=== PATIENT | female | born 1975 | race Caucasian/White ===

== ENCOUNTER 2016-10-24 17:14 | Emergency (ER) | payer BC ==
[2016-10-24 17:31] VITALS: BP 148/99
--- NOTE | 2016-10-24 18:27 | UC ---
Respiratory Complaint HPI - HPI Summary HPI Summary: pt c/o worsening cough and wheezing X 3 days. Pt was seen by PCP and is currently taking doxycycline, prednisone and guafenisein cough syrup with no improvement in symptoms - History of Current Complaint Chief Complaint: UCRespiratory Stated Complaint: COUGH,WHEEZING Time Seen by Provider: 10/24/16 17:58 Hx Obtained From: Patient Hx Last Menstrual Period: has an IUD; bleeding last week ?: No Onset/Duration: Gradual Onset, Lasting Days Timing: Constant Severity Initially: Mild Severity Currently: Moderate Character: Cough: Nonproductive Aggravating Factors: Exertion, Deep Breaths, Recumbent Position Alleviating Factors: Nothing Associated Signs And Symptoms: Positive: Wheezing, Hoarseness - Risk Factors Pseudomonas Risk Factors: Chronic Lung Disease - asthma Tuberculosis Risk Factors: Negative - Allergies/Home Medications Allergies/Adverse Reactions: Allergies Allergy/AdvReac Type Severity Reaction Status Date / Time Clarithromycin [From Biaxin] Allergy Intermediate Hives Verified 10/01/16 09:58 PMH/Surg Hx/FS Hx/Imm Hx Previously Healthy: Yes Endocrine History Of: Denies: Diabetes, Thyroid Disease Cardiovascular History Of: Denies: Cardiac Disorders, Hypertension, Pacemaker/ICD Respiratory History Of: Reports: Asthma Denies: COPD GI/ History Of: Denies: Ulcer Psychological History Of: Reports: Anxiety, Depression - Surgical History Surgical History: Yes Surgery Procedure, Year, and Place: surgery for detatched retna; silicone buckle. hernia surg. foot surg. ear tubes. tonsilectomy. pin placement left elbow - Family History Known Family History: Positive: Cardiac Disease - Social History Lives: With Family Alcohol Use: None Substance Use Type: None Smoking Status (MU): Never Smoked Tobacco Have You Smoked in the Last Year: No - Immunization History Most Recent Influenza Vaccination: June 2015 Most Recent Tetanus Shot: unknown Most Recent Pneumonia Vaccination: never Review of Systems Constitutional: Fatigue Skin: Negative Eyes: Negative ENT: Negative Respiratory: Cough Cardiovascular: Negative Gastrointestinal: Negative Genitourinary: Negative Motor: Negative Neurovascular: Negative Musculoskeletal: Negative Neurological: Negative Psychological: Negative All Other Systems Reviewed And Are Negative: Yes Physical Exam Triage Information Reviewed: Yes Appearance: Ill-Appearing Vital Signs: Initial Vital Signs Temp 96.3 F 10/24/16 17:26 Pulse 95 10/24/16 17:26 Resp 20 10/24/16 17:26 BP 148/99 10/24/16 17:26 Pulse Ox 97 10/24/16 17:26 Vital Signs Reviewed: Yes ENT Exam: Other ENT: Positive: Nasal congestion Neck exam: Normal Respiratory: Positive: Wheezing Cardiovascular Exam: Normal Musculoskeletal Exam: Normal Neurological Exam: Normal Psychological Exam: Normal Skin Exam: Normal UC Diagnostic Evaluation - Laboratory O2 Sat by Pulse Oximetry: 97 Respiratory Course/Dx - Course Course Of Treatment: chest xray. The lungs are clear. No pleural effusion is present. IMPRESSION: NO EVIDENCE FOR ACTIVE CARDIOPULMONARY DISEASE. - Differential Dx/Diagnosis Differential Diagnosis/HQI/PQRI: Asthma, Bronchitis, Other - pneumonia Provider Diagnoses: Bronchitis Discharge - Discharge Plan Condition: Stable Disposition: HOME Prescriptions: Amoxicillin/Clavulanate TAB* [Augmentin TAB 500 mg*] 500 mg PO BID #10 tab Benzonatate CAP* [Tessalon CAP*] 100 mg PO TID PRN #15 cap PRN Reason: Cough Patient Education Materials: Acute Bronchitis (ED), Wheezing (ED) Referrals: Memo Victoria MD [Primary Care Provider] - Additional Instructions: Please discontinue taking the Doxycycline that was prescribed to you.
--- NOTE | 2016-10-24 18:43 | RAD ---
INDICATION: Cough and shortness of breath. COMPARISON: Comparison is made with a prior study from January 07, 2016. TECHNIQUE: Dual-energy PA and lateral views of the chest were obtained. FINDINGS: The heart is within normal limits in size. Mediastinal and hilar contours appear within normal limits. The lungs are clear. No pleural effusion is present. IMPRESSION: NO EVIDENCE FOR ACTIVE CARDIOPULMONARY DISEASE.
[2016-10-24] MEDS ORDERED: Benzonatate CAP* 100 MG PO ONE (18:47)
[2016-10-24] MEDS ORDERED: Amoxicillin/Clavulanate TAB* 500 MG PO ONE (18:51)
== END 2016-10-24 18:55 | disposition home or self-care (01) ==
LOC: UCEAST 17:14
DX: J40 Bronchitis, not specified as acute or chronic (principal); Z88.1 Allergy status to other antibiotic agents
CPT/HCPCS: 71020; 99212; A9270-GY; G0463

== ENCOUNTER 2017-04-27 16:55 | Emergency (ER) | payer BC ==
[2017-04-27 17:23] VITALS: BP 128/71
--- NOTE | 2017-04-27 18:12 | UC ---
Respiratory Complaint HPI - HPI Summary HPI Summary: 42 y/o female w/ PMHX UC, Asthma, PCOS presents to the urgent care c/o persistent cough for the past 3 weeks. Pt reports her cough is productive w/ green phlegm, nasal congestion and mild SOB and Wheezing. she has been taking some organic medicine and lately Mucinex and using her Albuterol inhaler. Pt states her cough is disturbing everyone at work. Pt denies fever, chest pain, N/ V/D, urinary symptoms. Pt has not other complains. - History of Current Complaint Chief Complaint: UCRespiratory Stated Complaint: COUGH,CONGESTION Time Seen by Provider: 04/27/17 18:08 Hx Obtained From: Patient Hx Last Menstrual Period: IUD ?: No Onset/Duration: Gradual Onset, Lasting Weeks, Still Present Timing: Constant Severity Initially: Mild Severity Currently: Moderate Character: Cough: Productive - green phlegm Alleviating Factors: Bronchodilator - Allergies/Home Medications Allergies/Adverse Reactions: Allergies Allergy/AdvReac Type Severity Reaction Status Date / Time Clarithromycin [From Biaxin] Allergy Intermediate Hives Verified 04/27/17 17:23 Home Medications: Home Medications Adalimumab [Humira] 40 mg SC 04/27/17 [History] Ascorbic Acid TAB* [Vitamin C TAB*] 500 mg PO BID 04/27/17 [History Confirmed 04/27/17] Cholecalciferol TAB* [Vitamin D TAB*] 1,000 unit PO DAILY 04/27/17 [History Confirmed 04/27/17] Essential Oils* 04/27/17 [History] Zinc [Zinc Methionate] 50 mg PO DAILY 04/27/17 [History Confirmed 04/27/17] guaiFENesin ER TAB [Mucinex*] 2 tab PO PRN 04/27/17 [History] PMH/Surg Hx/FS Hx/Imm Hx Previously Healthy: Yes Other Endocrine History: PCOS Respiratory History: Asthma Other GI/ History: Ulcerative colitis - Surgical History Surgical History: Yes Surgery Procedure, Year, and Place: surgery for detatched retna; silicone buckle. hernia surg. foot surg. ear tubes. tonsilectomy. pin placement left elbow - Family History Known Family History: Positive: Cardiac Disease, Hypertension Family History: Dyslipidemia - Social History Occupation: Employed Full-time Lives: With Family Alcohol Use: None Substance Use Type: None Smoking Status (MU): Never Smoked Tobacco Have You Smoked in the Last Year: No - Immunization History Most Recent Influenza Vaccination: June 2015 Most Recent Tetanus Shot: unknown Most Recent Pneumonia Vaccination: never Review of Systems Constitutional: Negative Skin: Negative Eyes: Negative ENT: Negative Respiratory: Shortness Of Breath - productive with green phlegm, Cough Gastrointestinal: Negative Genitourinary: Negative Motor: Negative Neurovascular: Negative Musculoskeletal: Negative Neurological: Negative Psychological: Negative All Other Systems Reviewed And Are Negative: Yes Physical Exam Triage Information Reviewed: Yes Appearance: Well-Appearing, No Pain Distress, Well-Nourished, Obese Vital Signs: Initial Vital Signs Temp 97.2 F 04/27/17 17:20 Pulse 86 04/27/17 17:20 Resp 16 04/27/17 17:20 BP 128/71 04/27/17 17:20 Pulse Ox 100 04/27/17 17:20 Vital Signs Reviewed: Yes Eye Exam: Normal Eyes: Positive: Conjunctiva Clear - PERRLA, EOMI, ENT: Positive: Normal ENT inspection, Hearing grossly normal, Pharynx normal, TMs normal. Negative: Tonsillar swelling, Tonsillar exudate Dental Exam: Normal Neck exam: Normal Neck: Positive: Supple, Nontender, No Lymphadenopathy Respiratory Exam: Normal Respiratory: Positive: Chest non-tender, Normal breath sounds, Crackles - posterior left upper lung field w/ mild crackles Cardiovascular Exam: Normal Cardiovascular: Positive: RRR, No Murmur, Pulses Normal Abdominal Exam: Normal Abdomen Description: Positive: Nontender, No Organomegaly, Soft. Negative: CVA Tenderness (R), CVA Tenderness (L) Bowel Sounds: Positive: Present Musculoskeletal Exam: Normal Musculoskeletal: Positive: Strength Intact, ROM Intact, No Edema Neurological Exam: Normal Psychological Exam: Normal Skin Exam: Normal UC Diagnostic Evaluation - Laboratory O2 Sat by Pulse Oximetry: 100 Respiratory Course/Dx - Course Course Of Treatment: 42 y/o female w/ PMHX UC, Asthma, PCOS presents to the urgent care c/o persistent cough for the past 3 weeks. HX obtained. Pt Rx Z- abbey PO and Benzoate tab Po to alleviate her persistant cough. Advised to increase flud intake, rest and eat well. If symptoms do not improve to return to the urgent care or f/u with her PCP. - Differential Dx/Diagnosis Differential Diagnosis/HQI/PQRI: Asthma, Bronchitis, Laryngitis, Lower Resp Infection, Sinusitis, Other - pharyngitis Provider Diagnoses: 1- Bronchitis Discharge - Discharge Plan Condition: Stable Disposition: HOME Prescriptions: Azithromyxin ABBEY (NF) [Z-Abbey (Zithromax) 250 mg tabs #6] 2 tab PO .TODAY, THEN 1 DAILY #6 tab Benzonatate CAP* [Tessalon 100 MG CAP*] 100 mg PO TID PRN #21 cap PRN Reason: Cough Patient Education Materials: Acute Bronchitis (ED) Forms: *Work Release Referrals: Memo Victoria MD [Primary Care Provider] - If Needed Additional Instructions: Please take full course of antibiotic as directed to avoid recurrence or resistance. Continue taking your albuterol inhaler to alleviate symptoms. If symptoms do not improve or worsen please return to the urgent care or f/u with your PCP for further evaluation and treatment.
== END 2017-04-27 18:44 | disposition home or self-care (01) ==
LOC: UCEAST 16:55
DX: J40 Bronchitis, not specified as acute or chronic (principal); E28.2 Polycystic ovarian syndrome; E66.9 Obesity, unspecified; Z88.1 Allergy status to other antibiotic agents
CPT/HCPCS: 99212; G0463

== ENCOUNTER 2018-08-12 17:30 | Emergency (ER) | payer BC ==
--- OUTSIDE RECORDS SUMMARY | 2018-08-12 17:36 | XMS REPORT ---
:1975 External Reference #:[id number] Author Organization [employer] Address [address] [place] [address] Phone [phone] Care Team Providers Name Role Phone Adán Cano MD Care Team Information [employer] Unavailable Memo Victoria MD Primary Care Physician Unavailable Payers Type Date Identification Numbers Payment Provider Subscriber Commercial Policy Number: [id number] [place] Eitan Page PayID: [id number] [address] [place] [address] Problems Date Description Provider Status Onset: 08/15/2015 Status migrainosus Anthony Moore MD Active Onset: 12/29/2015 Migraine Anthony Moore MD Active Onset: 05/27/2016 Migraine without aura, not refractory Anthony Moore MD Active Family History Date Family Member(s) Problem(s) Comments General Diabetes General Cancer General Heart Disease General Rheumatoid Arthritis General Colitis Father Diabetes Father Hypercholesterolemia Mother Diabetes First Sister Cervical Cancer Social History Type Date Description Comments Marital Status Lives With Lives With Children x3 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 Cigarette Use Never Smoked Cigarettes ETOH Use Rarely consumes alcohol Smoking Patient has never smoked Recreational Drug Use Denies Drug Use Daily Caffeine Consumes on average 16oz of soda per day Daily Caffeine Consumes on average 4 cups of regular coffee per day Exercise Type/Frequency Exercises rarely Allergies, Adverse Reactions, Alerts Date Description Reaction Status Severity Comments 07/16/2014 Biaxin Urticaria active Moderate to Severe Medications Medication Date Status Form Strength Qnty SIG Indications Ordering Provider Methotrexate 07/28 Active Solution 50mg/2ML 10ml inject 0.9 K51.90 Jordan Sodium /2018 milliliter Quan, s under M.D. the skin once weekly BD 1ML 07/28 Active Misc 26G X 90uni for use Jordan Syringe/Needle/Sl 02/07" 1 ML ts weekly Quan, ip Tip/Subq/26G X with sc M.D. 02/07" methotrexa te Alprazolam 07/26 Active Tablets 0.25mg 14tab take one K51.90 s tablet/cap Quan, arcelia by M.D. mouth at bedtime. as needed for anxiety mdd 1 mdd 1 MDD 1 MDD 1 Folic Acid 02/01 Active Tablets 1mg 90tab take one R70.0 s capsule/ta Quan, blet daily M.D. by mouth Humira Pen 11/08 Active PNKT 40mg/0.8M 2unit inject 40 K51.90 L s mg Quan, subcutaneo M.D. usly every other week a Tizanidine HCL 11/02 Active Capsules 2mg 30cap take 1 to K51.90 s 2 capsules Quan, by mouth M.D. if needed at night for spasms Butalbital/Acetam 01/04 Active Tablets 50-325-40 10tab 1 by mouth Anthony inoanita/Caffeine /2016 mg s as needed Oscar migraine may repeat in 2 hours MDD 2 Topiramate 12/28 Active Tablets 25mg 150ta 2 by mouth Anthony /2016 bs every genesis Moore MD and 2 by mouth every night Albuterol Sulfate Active prn Singulair Active 10mg 1 po qd Xyzal Active Tab 1 po qd Unknown Spironolactone Active Tablets 25mg 30tab 2 po qam Unknown s and 3 q evening Duloxetine HCL Active Caps DR 60mg 1 po daily Niziol, / Part (total Memo, dose 90 MD mg) Dulera Active Aerosol 100-5mcg/ 2 puff Unknown Act twice a day Spiriva Active Capsules 18mcg 1 unit Unknown Handihaler / inhalation daily Duloxetine HCL Active Caps DR 30mg 1 by mouth Unknown Part every day (total dose 90 mg) Vit C Active 1000mg qd Zinc Active Tablets 50mg qd Vitamin D Active Capsules [id number] 14cap take one Jordan (Ergocalciferol) s capsule by Quan, mouth once M.D. weekly Biotin Active Capsules 10,000 qd Vitamin B-12 Active Tablets Sub 500mcg 1 by mouth Unknown every day Multivitamin Active Chewtabs 1 tabs Unknown Children once daily Caltrate 600+D Active Chewtabs 600-800mg take one Unknown Plus Minerals -Unit capsule/ta blet by mouth twice daily Essential Oils Active as needed Omeprazole Active Capsules DR 20mg 1 by mouth every day Tramadol HCL Active Tablets 50mg 60tab 1 or 2 as s needed for Quan, pain MDD 2 M.D. MDD 2 Cefaly Dual 03/08 Hx Device 1unit Dual Anthony Device /2017 s Device Oscar, - with 1 MD 05/20 package of electrodes . dxG43.009 Xanax 05/03 Hx Tablets 0.5mg 14tab Take one K51.90 s tablet/cap Marcio Glass by Chloé 07/26 mouth at bedtime. as needed for anxiety Methotrexate 02/01 Hx Tablets 2.5mg take 6 capsules/t Marcio Glassts by Chloé 02/01 mouth once weekly Methotrexate 02/01 Hx Tablets 2.5mg take 6 K51.90 capsules/t Marcio Glassts by Chloé 05/03 mouth once weekly Methotrexate 02/01 Hx Tablets 2.5mg 90tab take9 K51.90 s capsules/t Marcio Glassts by Chloé 07/28 mouth weekly on Tuesday evenings Humira Pen-Crohns 11/08 Hx PNKT 40mg/0.8M 6unit 160mg sq K51.90 Jordan Diseasestarter /2016 L s inj on Quan, - day 1; 80 M.D. 02/01 mg sq inj /2016 on day 15 then 40 mg sq inj on day 29 and q 2 weeks thereafter Humira Pen 11/05 Hx PNKT 40mg/0.8M 2unit 160 mg L s initially Quan, - on Day 1, M.D. 11/08 followed by 80 mg two weeks later, followed 2 weeks later by 40mg SQ every 2 weeks D3 Adult 11/02 Hx Chewtabs 1000Unit 90uni take one K51.90 ts capsule/ta Quan, - blet daily M.D. 10/25 by mouth Butalbital/Acetam 12/28 Hx Tablets 50-500-40 10tab 1 by mouth Anthony inophen/Caffeine mg s as needed Marcio Moore migraine 01/04 in 2 hours Topamax 09/18 Hx Tablets 25mg 270ta 1 po qam bs and 2 po Marcio Moore qpm 12/28 Amitriptyline HCL 08/06 Hx Tablets 10mg 90tab 2 po q hsx Anthony s 1week then Marcio Moroe 1 po qhs 12/01 x1we then stop Methylprednisolon 08/20 Hx Tablets 32mg 6tabs 1 tab by Siddhartha jus Nixon, - every day M.D. 09/09 for days, then start dose pack taper Methylprednisolon 08/20 Hx Tablets 4mg 1pack take as Siddhartha hill () catalino Nixon - M.D. 09/09 Gabapentin 08/20 Hx Capsules 300mg 90cap 1 po qhs, Siddhartha s farhan Nixon, - increase M.D. 10/21 to 1 tabs /2014 po tid after 5 days if needed, then 2 tabs po tid after 10 days if needed for pain Dulera 00 Hx 2 puffs Unknown / bid - 10/21 Omeprazole 00/00 Hx Unknown / - 09/09 Xanax 00/00 Hx Unknown /0000 - 09/09 Ultram ER 00/00 Hx prn / - 10/21 Remicade 00 Hx 800mg q 6 weeks Unknown / IV - infusion 02/01 Celexa 00 Hx 20mg po qd Unknown /0000 - 08/03 Fluticasone Hx Suspension 50mcg/Act 16uni 2 sprays Unknown Propionate /0000 ts each - nostril 10/21 daily needed Topiramate Hx Tablets 100mg 270ta 1 by mouth Unknown /0000 bs qd - 08/03 Methotrexate Hx Tab 2.5mg 90tab 8 by Unknown /0000 s mouth once - every 02/01 night Folic Acid 00 Hx 1 cap po Unknown /0000 daily - 02/01 Butalbital/Acetam Hx Capsules 50-325-40 Take 1 To Unknown inophen/Caffeine /0000 mg 2 Capsules - Every 4 12/28 Hours prn Duloxetine HCL Hx Caps DR 30mg 1 by mouth Unknown /0000 Part every day - in 10/15 to 60mg cap Phendimetrazine Hx Tablets 35mg 2 tabs bid Unknown Tartrate /0000 prn wt - loss 03/03 Womans One A Day Hx Unknown Multi Vit /0000 - 02/01 Lidocaine Hx Patches 5% apply Unknown / patch up - to 12 / hours a day. Prednisone 00 Hx Tablets 10mg Take 4 Unknown /0000 Tablets By - Mouth On 05/03 Days 1&2, 3 On Days 3&4, 2 On Days 5&6, 1 O Amoxicillin/Clavu 00 Hx Tablets 500-125mg take 1 Unknown lanate Potassium /0000 tablet by - mouth 02/01 twice a day Benzonatate Hx Capsules 100mg Unknown /0000 - 05/03 Augmentin 00/ Hx Suspension 250-62.5m 10 Unknown /0000 Rec g/5ML milliliter - s three 05/03 times day for 10 days Cefdinir Hx Capsules 300mg Unknown /0000 - 01/02 Medications Administered in Office Medication Date Status Form Strength Qnty SIG Indications Ordering Provider Celestone 3 mg Administered Injection Memo and 3mg Sammi Pedersen MD Immunizations CPT Code Status Date Vaccine Reaction Lot # [id number] Given 07/28/2018 Pneumonia Vaccine [id number] Given 01/27/2018 Tetanus And Diptheria (Td) no immediate reaction [id number] For Adult Use Preservative noted Free [id number] Given 02/01/2017 Pneumococcal Conjugate No reaction noted [id number] Vaccine 13 Valent For Intramuscular Use Vital Signs Date Vital Result Comment 07/28/2018 Height 68 inches 5'8" Weight 261.12 lb Heart Rate 90 /min BP Systolic Sitting 138 mmHg BP Diastolic Sitting 80 mmHg Pain Level 4 O2 % BldC Oximetry 97 % BMI (Body Mass Index) 39.7 kg/m2 07/11/2018 Height 68 inches 5'8" Weight 265.00 lb Heart Rate 90 /min BP Systolic 140 mmHg BP Diastolic 80 mmHg O2 % BldC Oximetry 97 % BMI (Body Mass Index) 40.3 kg/m2 06/20/2018 Height 68 inches 5'8" Weight 258.00 lb Respiratory Rate 16 /min BMI (Body Mass Index) 39.2 kg/m2 05/21/2018 Height 68 inches 5'8" Weight 258.38 lb Heart Rate 72 /min BP Systolic Sitting 122 mmHg Rue large cuff BP Diastolic Sitting 80 mmHg Rue large cuff Respiratory Rate 16 /min O2 % BldC Oximetry 97 % BMI (Body Mass Index) 39.3 kg/m2 04/28/2018 Height 68 inches 5'8" Weight 263.00 lb Heart Rate 89 /min BP Systolic Sitting 126 mmHg BP Diastolic Sitting 82 mmHg Pain Level 6 O2 % BldC Oximetry 98 % BMI (Body Mass Index) 40.0 kg/m2 03/24/2018 Height 68 inches 5'8" Weight 256.00 lb Heart Rate 88 /min BP Systolic Sitting 124 mmHg BP Diastolic Sitting 88 mmHg Respiratory Rate 14 /min O2 % BldC Oximetry 98 % BMI (Body Mass Index) 38.9 kg/m2 03/08/2018 Height 68 inches 5'8" Weight 257.50 lb Heart Rate 78 /min BP Systolic Sitting 126 mmHg BP Diastolic Sitting 80 mmHg BMI (Body Mass Index) 39.1 kg/m2 03/04/2018 Height 68 inches 5'8" Weight 257.00 lb Heart Rate 84 /min BP Systolic Sitting 124 mmHg Lue lg cuff BP Diastolic Sitting 80 mmHg Lue lg cuff Respiratory Rate 16 /min BMI (Body Mass Index) 39.1 kg/m2 Neck Circumference in inches 14.5 Ejection Fraction 98% on Ra 01/27/2018 Height 68 inches 5'8" Weight 259.50 lb Heart Rate 86 /min BP Systolic Sitting 118 mmHg BP Diastolic Sitting 80 mmHg Pain Level 5 O2 % BldC Oximetry 98 % BMI (Body Mass Index) 39.5 kg/m2 10/25/2017 Height 68 inches 5'8" Weight 264.00 lb Heart Rate 84 /min BP Systolic Sitting 110 mmHg BP Diastolic Sitting 60 mmHg Respiratory Rate 14 /min Pain Level 2 BMI (Body Mass Index) 40.1 kg/m2 07/26/2017 Height 68 inches 5'8" Weight 265.50 lb Heart Rate 203 /min BP Systolic 133 mmHg BP Diastolic 87 mmHg Body Temperature 98.3 F O2 % BldC Oximetry 97 % BMI (Body Mass Index) 40.4 kg/m2 05/17/2017 Height 68 inches 5'8" Weight 263.00 lb Heart Rate 76 /min BP Systolic Sitting 128 mmHg BP Diastolic Sitting 80 mmHg BMI (Body Mass Index) 40.0 kg/m2 05/03/2017 Height 68 inches 5'8" Weight 261.00 lb Heart Rate 87 /min BP Systolic Sitting 131 mmHg BP Diastolic Sitting 78 mmHg Body Temperature 97.5 F Pain Level 0 BMI (Body Mass Index) 39.7 kg/m2 02/01/2017 Height 68 inches 5'8" Heart Rate 82 /min BP Systolic Sitting 133 mmHg BP Diastolic Sitting 88 mmHg Respiratory Rate 16 /min Pain Level 2 11/02/2016 Height 68 inches 5'8" Weight 266.00 lb Heart Rate 88 /min BP Systolic Sitting 138 mmHg BP Diastolic Sitting 82 mmHg Body Temperature 97.1 F Pain Level 2 BMI (Body Mass Index) 40.4 kg/m2 10/22/2016 Height 68 inches 5'8" Weight 268.00 lb Heart Rate 64 /min BP Systolic Sitting 118 mmHg BP Diastolic Sitting 78 mmHg Respiratory Rate 16 /min Pain Level 3 BMI (Body Mass Index) 40.7 kg/m2 10/15/2016 Height 68 inches 5'8" Weight 268.00 lb Heart Rate 84 /min BP Systolic Sitting 120 mmHg BP Diastolic Sitting 74 mmHg Body Temperature 97.8 F Pain Level 3 BMI (Body Mass Index) 40.7 kg/m2 05/27/2016 Height 68 inches 5'8" Weight 272.12 lb Heart Rate 85 /min BP Systolic Sitting 128 mmHg BP Diastolic Sitting 80 mmHg Respiratory Rate 18 /min O2 % BldC Oximetry 98 % BMI (Body Mass Index) 41.4 kg/m2 12/29/2015 Height 68 inches 5'8" Weight 268.00 lb Heart Rate 84 /min BP Systolic 126 mmHg BP Diastolic 78 mmHg Respiratory Rate 16 /min BMI (Body Mass Index) 40.7 kg/m2 08/15/2015 Height 68 inches 5'8" Weight 270.00 lb Heart Rate 76 /min BP Systolic Sitting 142 mmHg BP Diastolic Sitting 86 mmHg Respiratory Rate 16 /min BMI (Body Mass Index) 41.0 kg/m2 10/22/2014 Height 69.5 inches 5'9.50" Weight 262.00 lb Pain Level 1 BMI (Body Mass Index) 38.1 kg/m2 09/10/2014 Height 69.5 inches 5'9.50" Weight 262.00 lb Heart Rate 72 /min BMI (Body Mass Index) 38.1 kg/m2 09/09/2014 Height 69.5 inches 5'9.50" Weight 262.00 lb Heart Rate 78 /min BP Systolic Sitting 118 mmHg BP Diastolic Sitting 78 mmHg Pain Level 3 BMI (Body Mass Index) 38.1 kg/m2 08/20/2014 Height 69.5 inches Weight 230.00 lb Heart Rate 79 /min BP Systolic 117 mmHg BP Diastolic 89 mmHg BMI (Body Mass Index) 33.5 kg/m2 07/16/2014 Height 69.5 inches 5'9.50" Weight 230.00 lb Heart Rate 85 /min BP Systolic 121 mmHg BP Diastolic 91 mmHg BMI (Body Mass Index) 33.5 kg/m2 Results Test Date Test Result H/L Range Note Laboratory test finding 04/28/2018 Erythrocyte Sed Rate 38 mm/Hr High 0- 14 C Reactive Protein 9.98 mg/L High <8.01 CBC Auto Diff 04/28/2018 White Blood Count 9.3 10^3/uL 3.5-10.8 Red Blood Count 4.49 10^6/uL 4.00-5.40 Hemoglobin 13.5 g/dL 12.0-16.0 Hematocrit 40 % 35-47 Mean Corpuscular Volume 88 fL 80-97 Mean Corpuscular Hemoglobin 30 pg 27-31 Mean Corpuscular HGB Conc 34 g/dL 31-36 Red Cell Distribution Width 15 % 10.5-15 Platelet Count 352 10^3/uL 150-450 Mean Platelet Volume 7.4 um3 7.4-10.4 Abs Neutrophils 4.2 10^3/uL 1.5-7.7 Abs Lymphocytes 4.2 10^3/uL 1.0-4.8 Abs Monocytes 0.7 10^3/uL 0-0.8 Abs Eosinophils 0.2 10^3/uL 0-0.6 Abs Basophils 0 10^3/uL 0-0.2 Abs Nucleated RBC 0 10^3/uL Granulocyte % 45.4 % 38-83 Lymphocyte % 44.9 % 25-47 Monocyte % 7.4 % High 0-7 Eosinophil % 1.8 % 0-6 Basophil % 0.5 % 0-2 Nucleated Red Blood Cells % 0.2 Comp Metabolic Panel 04/28/2018 Sodium 138 mmol/L 135-145 Potassium 4.1 mmol/L 3.5-5.0 Chloride 102 mmol/L 101-111 Co2 Carbon Dioxide 27 mmol/L 22-32 Anion Gap 9 mmol/L 2-11 Glucose 110 mg/dL High 70-100 Blood Urea Nitrogen 14 mg/dL 6-24 Creatinine 0.74 mg/dL 0.51-0.95 BUN/Creatinine Ratio 18.9 8-20 Calcium 9.8 mg/dL 8.6-10.3 Total Protein 7.3 g/dL 6.4-8.9 Albumin 4.4 g/dL 3.2-5.2 Globulin 2.9 g/dL 2-4 Albumin/Globulin Ratio 1.5 1-3 Total Bilirubin 0.20 mg/dL 0.2-1.0 Alkaline Phosphatase 89 U/L 34-104 Alt 22 U/L 7-52 Ast 20 U/L 13-39 Egfr Non- 85.3 >60 Egfr 103.2 >60 1 Laboratory test finding 03/04/2018 Nuclear AB ([place]) By Ifa Igg <1:80 ( Negative) 2 Anca Panel For 03/04/2018 Myeloperoxidase AB < 0.2 U 3 Vasculitis Proteinase 3 AB < 0.2 U 4 Laboratory test finding 03/04/2018 CRP High Sensitivity 9.02 mg/L 5 Immunoglobulin E (Ige) 26.9 kU/L <=214 6 CBC Auto Diff 03/04/2018 White Blood Count 7.9 10^3/uL 3.5-10.8 Red Blood Count 4.55 10^6/uL 4.0-5.4 Hemoglobin 13.4 g/dL 12.0-16.0 Hematocrit 39 % 35-47 Mean Corpuscular Volume 87 fL 80-97 Mean Corpuscular Hemoglobin 29 pg 27-31 Mean Corpuscular HGB Conc 34 g/dL 31-36 Red Cell Distribution Width 15 % 10.5-15 Platelet Count 315 10^3/uL 150-450 Mean Platelet Volume 7.7 um3 7.4-10.4 Abs Neutrophils 4.1 10^3/uL 1.5-7.7 Abs Lymphocytes 3.2 10^3/uL 1.0-4.8 Abs Monocytes 0.5 10^3/uL 0-0.8 Abs Eosinophils 0.1 10^3/uL 0-0.6 Abs Basophils 0.1 10^3/uL 0-0.2 Abs Nucleated RBC 0 10^3/uL Granulocyte % 51.7 % 38-83 Lymphocyte % 40.4 % 25-47 Monocyte % 6.3 % 0-7 Eosinophil % 0.9 % 0-6 Basophil % 0.7 % 0-2 Nucleated Red Blood Cells % 0.1 Laboratory test finding 01/27/2018 Erythrocyte Sed Rate 35 mm/Hr High 0- 14 C Reactive Protein 7.91 mg/L High < 5.00 7 CBC Auto Diff 01/27/2018 White Blood Count 9.5 10^3/uL 3.5-10.8 Red Blood Count 4.66 10^6/uL 4.0-5.4 Hemoglobin 13.8 g/dL 12.0-16.0 Hematocrit 40 % 35-47 Mean Corpuscular Volume 86 fL 80-97 Mean Corpuscular Hemoglobin 30 pg 27-31 Mean Corpuscular HGB Conc 34 g/dL 31-36 Red Cell Distribution Width 15 % 10.5-15 Platelet Count 348 10^3/uL 150-450 Mean Platelet Volume 7.2 um3 Low 7.4-10.4 Abs Neutrophils 4.5 10^3/uL 1.5-7.7 Abs Lymphocytes 4.1 10^3/uL 1.0-4.8 Abs Monocytes 0.7 10^3/uL 0-0.8 Abs Eosinophils 0.1 10^3/uL 0-0.6 Abs Basophils 0.1 10^3/uL 0-0.2 Abs Nucleated RBC 0 10^3/uL Granulocyte % 47.4 % 38-83 Lymphocyte % 43.5 % 25-47 Monocyte % 7.6 % High 0-7 Eosinophil % 0.9 % 0-6 Basophil % 0.6 % 0-2 Nucleated Red Blood Cells % 0.1 Comp Metabolic Panel 01/27/2018 Sodium 137 mmol/L Low 139-145 Potassium 4.1 mmol/L 3.5-5.0 Chloride 104 mmol/L 101-111 Co2 Carbon Dioxide 21 mmol/L Low 22-32 Anion Gap 12 mmol/L High 2-11 Glucose 93 mg/dL 70-100 Blood Urea Nitrogen 22 mg/dL 6-24 Creatinine 0.78 mg/dL 0.51-0.95 BUN/Creatinine Ratio 28.2 High 8-20 Calcium 9.7 mg/dL 8.6-10.3 Total Protein 7.7 g/dL 6.4-8.9 Albumin 4.5 g/dL 3.2-5.2 Globulin 3.2 g/dL 2-4 Albumin/Globulin Ratio 1.4 1-3 Total Bilirubin 0.30 mg/dL 0.2-1.0 Alkaline Phosphatase 83 U/L 34-104 Alt 17 U/L 7-52 Ast 15 U/L 13-39 Egfr Non- 80.2 >60 Egfr 103.2 >60 8 Laboratory test finding 10/25/2017 C Reactive Protein 11.75 mg/L High < 5.00 9 Erythrocyte Sed Rate 28 mm/Hr High 0-14 10 CBC Auto Diff 10/25/2017 White Blood Count 12.3 10^3/uL High 3.5-10.8 Red Blood Count 4.91 10^6/uL 4.0-5.4 Hemoglobin 14.5 g/dL 12.0-16.0 Hematocrit 44 % 35-47 Mean Corpuscular Volume 89 fL 80-97 Mean Corpuscular Hemoglobin 29 pg 27-31 Mean Corpuscular HGB Conc 33 g/dL 31-36 Red Cell Distribution Width 15 % 10.5-15 Platelet Count 399 10^3/uL 150-450 Mean Platelet Volume 7 um3 Low 7.4-10.4 Abs Neutrophils 6.8 10^3/uL 1.5-7.7 Abs Lymphocytes 4.4 10^3/uL 1.0-4.8 Abs Monocytes 0.9 10^3/uL High 0-0.8 Abs Eosinophils 0.2 10^3/uL 0-0.6 Abs Basophils 0.1 10^3/uL 0-0.2 Abs Nucleated RBC 0 10^3/uL Granulocyte % 55.5 % 38-83 Lymphocyte % 35.7 % 25-47 Monocyte % 7.0 % 1-9 Eosinophil % 1.3 % 0-6 Basophil % 0.5 % 0-2 Nucleated Red Blood Cells % 0 Comp Metabolic Panel 10/25/2017 Sodium 137 mmol/L 133-145 Potassium 4.8 mmol/L 3.5-5.0 Chloride 105 mmol/L 101-111 Co2 Carbon Dioxide 25 mmol/L 22-32 Anion Gap 7 mmol/L 2-11 Glucose 90 mg/dL 70-100 Blood Urea Nitrogen 23 mg/dL 6-24 Creatinine 0.83 mg/dL 0.51-0.95 BUN/Creatinine Ratio 27.7 High 8-20 Calcium 9.9 mg/dL 8.6-10.3 Total Protein 7.5 g/dL 6.4-8.9 Albumin 4.6 g/dL 3.2-5.2 Globulin 2.9 g/dL 2-4 Albumin/Globulin Ratio 1.6 1-3 Total Bilirubin 0.20 mg/dL 0.2-1.0 Alkaline Phosphatase 77 U/L 34-104 Alt 27 U/L 7-52 Ast 18 U/L 13-39 Egfr Non- 75.0 >60 Egfr 96.5 >60 11 Laboratory test finding 07/26/2017 Erythrocyte Sed Rate 32 mm/Hr High 0- 14 C Reactive Protein 9.31 mg/L High < 5.00 12 CBC Auto Diff 07/26/2017 White Blood Count 9.7 10^3/uL 3.5-10.8 Red Blood Count 4.57 10^6/uL 4.0-5.4 Hemoglobin 13.8 g/dL 12.0-16.0 Hematocrit 40 % 35-47 Mean Corpuscular Volume 88 fL 80-97 Mean Corpuscular Hemoglobin 30 pg 27-31 Mean Corpuscular HGB Conc 34 g/dL 31-36 Red Cell Distribution Width 14 % 10.5-15 Platelet Count 384 10^3/uL 150-450 Mean Platelet Volume 7 um3 Low 7.4-10.4 Abs Neutrophils 5.0 10^3/uL 1.5-7.7 Abs Lymphocytes 3.8 10^3/uL 1.0-4.8 Abs Monocytes 0.7 10^3/uL 0-0.8 Abs Eosinophils 0.2 10^3/uL 0-0.6 Abs Basophils 0.1 10^3/uL 0-0.2 Abs Nucleated RBC 0 10^3/uL Granulocyte % 51.2 % 38-83 Lymphocyte % 39.4 % 25-47 Monocyte % 7.0 % 1-9 Eosinophil % 1.9 % 0-6 Basophil % 0.5 % 0-2 Nucleated Red Blood Cells % 0 Comp Metabolic Panel 07/26/2017 Sodium 138 mmol/L 133-145 Potassium 4.3 mmol/L 3.5-5.0 Chloride 104 mmol/L 101-111 Co2 Carbon Dioxide 28 mmol/L 22-32 Anion Gap 6 mmol/L 2-11 Glucose 123 mg/dL High 70-100 Blood Urea Nitrogen 16 mg/dL 6-24 Creatinine 0.84 mg/dL 0.51-0.95 BUN/Creatinine Ratio 19.0 8-20 Calcium 9.6 mg/dL 8.6-10.3 Total Protein 7.5 g/dL 6.4-8.9 Albumin 4.5 g/dL 3.2-5.2 Globulin 3.0 g/dL 2-4 Albumin/Globulin Ratio 1.5 1-3 Total Bilirubin 0.20 mg/dL 0.2-1.0 Alkaline Phosphatase 74 U/L 34-104 Alt 24 U/L 7-52 Ast 20 U/L 13-39 Egfr Non- 74.0 >60 Egfr 95.2 >60 13 CBC Auto Diff 05/03/2017 White Blood Count 6.9 10^3/uL 3.5-10.8 Red Blood Count 4.50 10^6/uL 4.0-5.4 Hemoglobin 13.5 g/dL 12.0-16.0 Hematocrit 40 % 35-47 Mean Corpuscular Volume 89 fL 80-97 Mean Corpuscular Hemoglobin 30 pg 27-31 Mean Corpuscular HGB Conc 34 g/dL 31-36 Red Cell Distribution Width 15 % 10.5-15 Platelet Count 373 10^3/uL 150-450 Mean Platelet Volume 8 um3 7.4-10.4 Abs Neutrophils 3.6 10^3/uL 1.5-7.7 Abs Lymphocytes 2.8 10^3/uL 1.0-4.8 Abs Monocytes 0.4 10^3/uL 0-0.8 Abs Eosinophils 0.1 10^3/uL 0-0.6 Abs Basophils 0 10^3/uL 0-0.2 Abs Nucleated RBC 0.01 10^3/uL Granulocyte % 51.5 % 38-83 Lymphocyte % 41.0 % 25-47 Monocyte % 5.5 % 1-9 Eosinophil % 1.4 % 0-6 Basophil % 0.6 % 0-2 Nucleated Red Blood Cells % 0.1 Comp Metabolic Panel 05/03/2017 Sodium 135 mmol/L 133-145 Potassium 4.1 mmol/L 3.5-5.0 Chloride 105 mmol/L 101-111 Co2 Carbon Dioxide 21 mmol/L Low 22-32 Anion Gap 9 mmol/L 2-11 Glucose 86 mg/dL 70-100 Blood Urea Nitrogen 16 mg/dL 6-24 Creatinine 0.67 mg/dL 0.51-0.95 BUN/Creatinine Ratio 23.9 High 8-20 Calcium 9.4 mg/dL 8.6-10.3 Total Protein 7.3 g/dL 6.4-8.9 Albumin 4.3 g/dL 3.2-5.2 Globulin 3.0 g/dL 2-4 Albumin/Globulin Ratio 1.4 1-3 Total Bilirubin 0.30 mg/dL 0.2-1.0 Alkaline Phosphatase 73 U/L 34-104 Alt 16 U/L 7-52 Ast 14 U/L 13-39 Egfr Non- 96.1 >60 Egfr 123.5 >60 14 Laboratory test finding 05/03/2017 Erythrocyte Sed Rate 29 mm/Hr High 0- 14 15 C Reactive Protein 9.57 mg/L High < 5.00 16 Laboratory test finding 02/01/2017 C Reactive Protein 5.35 mg/L High < 5.00 17 Erythrocyte Sed Rate 23 mm/Hr High 0-14 18 TSH (Thyroid Stim Horm) 0.41 mcIU/mL 0.34-5.60 19 CBC Auto Diff 02/01/2017 White Blood Count 9.7 10^3/uL 3.5-10.8 Red Blood Count 4.77 10^6/uL 4.0-5.4 Hemoglobin 14.0 g/dL 12.0-16.0 Hematocrit 43 % 35-47 Mean Corpuscular Volume 90 fL 80-97 Mean Corpuscular Hemoglobin 29 pg 27-31 Mean Corpuscular HGB Conc 33 g/dL 31-36 Red Cell Distribution Width 15 % 10.5-15 Platelet Count 368 10^3/uL 150-450 Mean Platelet Volume 8 um3 7.4-10.4 Abs Neutrophils 7.2 10^3/uL 1.5-7.7 Abs Lymphocytes 2.2 10^3/uL 1.0-4.8 Abs Monocytes 0.2 10^3/uL 0-0.8 Abs Eosinophils 0 10^3/uL 0-0.6 Abs Basophils 0 10^3/uL 0-0.2 Abs Nucleated RBC 0.01 10^3/uL Granulocyte % 74.0 % 38-83 Lymphocyte % 22.9 % Low 25-47 Monocyte % 2.5 % 1-9 Eosinophil % 0.1 % 0-6 Basophil % 0.5 % 0-2 Nucleated Red Blood Cells % 0.1 Comp Metabolic Panel 02/01/2017 Sodium 137 mmol/L 133-145 Potassium 4.4 mmol/L 3.5-5.0 Chloride 104 mmol/L 101-111 Co2 Carbon Dioxide 26 mmol/L 22-32 Anion Gap 7 mmol/L 2-11 Glucose 129 mg/dL High 70-100 Blood Urea Nitrogen 17 mg/dL 6-24 Creatinine 0.77 mg/dL 0.51-0.95 BUN/Creatinine Ratio 22.1 High 8-20 Calcium 9.4 mg/dL 8.6-10.3 Total Protein 7.5 g/dL 6.4-8.9 Albumin 4.4 g/dL 3.2-5.2 Globulin 3.1 g/dL 2-4 Albumin/Globulin Ratio 1.4 1-3 Total Bilirubin 0.30 mg/dL 0.2-1.0 Alkaline Phosphatase 64 U/L 34-104 Alt 22 U/L 7-52 Ast 20 U/L 13-39 Egfr Non- 81.8 >60 Egfr 105.2 >60 20 Laboratory test finding 10/15/2016 Erythrocyte Sed Rate 37 mm/Hr High 0- 14 21 C Reactive Protein 11.03 mg/L High < 5.00 22 Kita Igg AB Reflex 10/15/2016 SS-A/Ro Antibody <0.2 U 23 SS-B/La Antibody <0.2 U 24 Sm (Shepherd) IgG Antibody <0.2 U 25 U1-nRNP Antibody 0.2 U 26 Scl-70 (Scleroderma) Antibody <0.2 U 27 Greer-1 Antibody <0.2 U 28 Laboratory test finding 10/15/2016 Lyme Disease Serology Negative Negative 29 Anti Double Stranded Dna AB <12.3 IU/mL 30 Complement C3 136 mg/dL 75 - 175 31 Complement C4 40 mg/dL 14 - 40 32 Cardiolipin Igg/Igm 10/15/2016 Phospholipid Ab IgM, S < 4.0 MPL 33 Phospholipid Ab IgG < 4.0 GPL 34 Laboratory test finding 10/15/2016 Cyclic Citrullinated Pept IgG <15.6 U 35 Rheumatoid Factor <15 IU/mL <15 36 CBC Auto Diff 10/15/2016 White Blood Count 8.3 10^3/uL 3.5-10.8 Red Blood Count 4.53 10^6/uL 4.0-5.4 Hemoglobin 13.4 g/dL 12.0-16.0 Hematocrit 40 % 35-47 Mean Corpuscular Volume 89 fL 80-97 Mean Corpuscular Hemoglobin 30 pg 27-31 Mean Corpuscular HGB Conc 33 g/dL 31-36 Red Cell Distribution Width 15 % 10.5-15 Platelet Count 341 10^3/uL 150-450 Mean Platelet Volume 7 um3 Low 7.4-10.4 Abs Neutrophils 4.4 10^3/uL 1.5-7.7 Abs Lymphocytes 3.2 10^3/uL 1.0-4.8 Abs Monocytes 0.6 10^3/uL 0-0.8 Abs Eosinophils 0.1 10^3/uL 0-0.6 Abs Basophils 0 10^3/uL 0-0.2 Abs Nucleated RBC 0 10^3/uL Granulocyte % 53.3 % 38-83 Lymphocyte % 38.2 % 25-47 Monocyte % 7.0 % 1-9 Eosinophil % 1.0 % 0-6 Basophil % 0.5 % 0-2 Nucleated Red Blood Cells % 0 Celiac Panel 10/15/2016 Tissue Transglutaminase IgA Ab <1.2 U/mL 37 Immunoglobulin A 268 mg/dL 61 - 356 Celiac Interpretation See Comment 38 Laboratory test finding 10/15/2016 Anti Double Stranded Dna AB <12.3 IU/mL 39 Vitamin D 1,25-Dihydroxy 75 pg/mL 18-78 40 Nuclear Ab ([place]) by [facility], IgG See Comment 41 Cardiolipin Igg/Igm 10/15/2016 Phospholipid Ab IgM, S < 4.0 MPL 42 Phospholipid Ab IgG < 4.0 GPL 43 Celiac Panel 10/15/2016 Tissue Transglutaminase IgA Ab <1.2 U/mL 44 Immunoglobulin A 268 mg/dL 61 - 356 Celiac Interpretation See Comment 45 Hla B27 10/15/2016 Hla B27 Negative 46 Hla B27 Interp See Comment 47 Neutrophil Cytoplasmic AB 10/15/2016 C-Anca Negative Negative P-Anca Negative Negative 48 Protein Electrophoresis 10/15/2016 Total Protein(Pep) 7.8 g/dL 6.3 - 7.9 Albumin 3.8 g/dL 3.4-4.7 Alpha-1 Globulin 0.3 g/dL 0.1-0.3 Alpha-2 Globulin 1.2 g/dL 0.6-1.0 Beta Globulin 1.3 g/dL 0.7-1.2 Gamma Globulin 1.3 g/dL 0.6-1.6 Albumin/Globulin Ratio 0.95 Impression See Comment 49 Laboratory test finding 10/15/2016 Cyclic Citrullinated Pep Igg <15.6 U 50 Lyme Disease Serology Negative Negative 51 Complement C3 136 mg/dL 75 - 175 52 Complement C4 40 mg/dL 14 - 40 53 Rheumatoid Factor <15 IU/mL <15 54 Kita Igg AB Reflex 10/15/2016 SS-A/Ro Antibody <0.2 U 55 SS-B/La Antibody <0.2 U 56 Sm (Shepherd) IgG Antibody <0.2 U 57 U1-nRNP Antibody 0.2 U 58 Scl-70 (Scleroderma) Antibody <0.2 U 59 Greer-1 Antibody <0.2 U 60 Laboratory test finding 10/15/2016 Angiotension Converting Enzyme 56 U/L 8 - 53 61 Thyroglobulin Antibody <1.8 IU/mL <4.0 62 Laboratory test finding 10/15/2016 Miscellaneous Test DELETED 63 Hla B27 10/15/2016 Hla B27 Negative 64 Hla B27 Interp See Comment 65 Laboratory test finding 10/15/2016 Free T3 3.60 pg/mL 2.5-3.9 66 Anti-Thyroid Antibodies Screen 10/15/2016 Thyroperoxidase AB 0.77 IU/mL < 9 67 Thyroglobulin Antibody <1.8 IU/mL <4.0 68 Laboratory test finding 10/15/2016 Creatine Kinase 259 U/L High 10-223 69 Protein Electrophoresis 10/15/2016 Total Protein(Pep) 7.8 g/dL 6.3 - 7.9 Albumin 3.8 g/dL 3.4-4.7 Alpha-1 Globulin 0.3 g/dL 0.1-0.3 Alpha-2 Globulin 1.2 g/dL 0.6-1.0 Beta Globulin 1.3 g/dL 0.7-1.2 Gamma Globulin 1.3 g/dL 0.6-1.6 Albumin/Globulin Ratio 0.95 Impression See Comment 70 Laboratory test 10/15/2016 Antistreptolysin O Titer Negative IU/mL <200 Iu/mL 71 finding Angiotension Converting Enzyme 56 U/L 8 - 53 72 Anca AB Ser If 10/15/2016 C-Anca Negative Negative P-Anca Negative Negative 73 Vitamin D 1,25 And Vitamin 10/15/2016 Vitamin D Total 25(Oh) 22.5 ng/mL Low 30-50 74 D,2 Vitamin D 1,25-Dihydroxy 75 pg/mL 18-78 75 Vitamin B12 And Folate Serum 10/15/2016 Vitamin B12 404 pg/mL 180-914 76 Folic Acid (Folate) > 20.00 ng/mL >3.99 77 Laboratory test finding 08/20/2014 C Reactive Protein 5.40 mg/L High < 5.00 78 Erythrocyte Sed Rate 17 mm/Hr High 0-14 1 Because ethnic data is not always readily available, this report includes an eGFR for both -Americans and non- Americans. The National Kidney Disease Education Program (NKDEP) does not endorse the use of the MDRD equation for patients that are not between the ages of 18 and 70, are , have extremes of body size, muscle mass, or nutritional status, or are non- or non-. According to the National Kidney Foundation, irrespective of diagnosis, the stage of the disease is based on the level of kidney function: Stage Description GFR(mL/min/1.73 m(2)) 1 Kidney damage with normal or decreased GFR 90 2 Kidney damage with mild decrease in GFR 60-89 3 Moderate decrease in GFR 30-59 4 Severe decrease in GFR 15-29 5 Kidney failure <15 (or dialysis) 2 <1:80 (Negative) REFERENCE VALUE <1:80 (Negative) Test Performed by: [facility] [address] [place] [address] 3 REFERENCE VALUE <0.4 (Negative) 4 REFERENCE VALUE <0.4 (Negative) Test Performed by: [facility], [place] [address] [place] [address] 5 Low risk: <1.00 Average risk: 1.00-3.00 High risk: >3.00 6 Test Performed by: [facility] - [place] [address] [place] [address] 7 Acute inflammation: >10.00 8 Because ethnic data is not always readily available, this report includes an eGFR for both -Americans and non- Americans. The National Kidney Disease Education Program (NKDEP) does not endorse the use of the MDRD equation for patients that are not between the ages of 18 and 70, are , have extremes of body size, muscle mass, or nutritional status, or are non- or non-. According to the National Kidney Foundation, irrespective of diagnosis, the stage of the disease is based on the level of kidney function: Stage Description GFR(mL/min/1.73 m(2)) 1 Kidney damage with normal or decreased GFR 90 2 Kidney damage with mild decrease in GFR 60-89 3 Moderate decrease in GFR 30-59 4 Severe decrease in GFR 15-29 5 Kidney failure <15 (or dialysis) 9 Acute inflammation: >10.00 10 Please check labs today 11 Because ethnic data is not always readily available, this report includes an eGFR for both -Americans and non- Americans. The National Kidney Disease Education Program (NKDEP) does not endorse the use of the MDRD equation for patients that are not between the ages of 18 and 70, are , have extremes of body size, muscle mass, or nutritional status, or are non- or non-. According to the National Kidney Foundation, irrespective of diagnosis, the stage of the disease is based on the level of kidney function: Stage Description GFR(mL/min/1.73 m(2)) 1 Kidney damage with normal or decreased GFR 90 2 Kidney damage with mild decrease in GFR 60-89 3 Moderate decrease in GFR 30-59 4 Severe decrease in GFR 15-29 5 Kidney failure <15 (or dialysis) 12 Acute inflammation: >10.00 13 Because ethnic data is not always readily available, this report includes an eGFR for both -Americans and non- Americans. The National Kidney Disease Education Program (NKDEP) does not endorse the use of the MDRD equation for patients that are not between the ages of 18 and 70, are , have extremes of body size, muscle mass, or nutritional status, or are non- or non-. According to the National Kidney Foundation, irrespective of diagnosis, the stage of the disease is based on the level of kidney function: Stage Description GFR(mL/min/1.73 m(2)) 1 Kidney damage with normal or decreased GFR 90 2 Kidney damage with mild decrease in GFR 60-89 3 Moderate decrease in GFR 30-59 4 Severe decrease in GFR 15-29 5 Kidney failure <15 (or dialysis) 14 Because ethnic data is not always readily available, this report includes an eGFR for both -Americans and non- Americans. The National Kidney Disease Education Program (NKDEP) does not endorse the use of the MDRD equation for patients that are not between the ages of 18 and 70, are , have extremes of body size, muscle mass, or nutritional status, or are non- or non-. According to the National Kidney Foundation, irrespective of diagnosis, the stage of the disease is based on the level of kidney function: Stage Description GFR(mL/min/1.73 m(2)) 1 Kidney damage with normal or decreased GFR 90 2 Kidney damage with mild decrease in GFR 60-89 3 Moderate decrease in GFR 30-59 4 Severe decrease in GFR 15-29 5 Kidney failure <15 (or dialysis) 15 Please check today 16 Acute inflammation: >10.00 17 Acute inflammation: >10.00 18 Please check today 19 Please check today 20 Because ethnic data is not always readily available, this report includes an eGFR for both -Americans and non- Americans. The National Kidney Disease Education Program (NKDEP) does not endorse the use of the MDRD equation for patients that are not between the ages of 18 and 70, are , have extremes of body size, muscle mass, or nutritional status, or are non- or non-. According to the National Kidney Foundation, irrespective of diagnosis, the stage of the disease is based on the level of kidney function: Stage Description GFR(mL/min/1.73 m(2)) 1 Kidney damage with normal or decreased GFR 90 2 Kidney damage with mild decrease in GFR 60-89 3 Moderate decrease in GFR 30-59 4 Severe decrease in GFR 15-29 5 Kidney failure <15 (or dialysis) 21 Please check this week 22 Acute inflammation: >10.00 23 REFERENCE VALUE <1.0 (Negative) 24 REFERENCE VALUE <1.0 (Negative) 25 REFERENCE VALUE <1.0 (Negative) 26 REFERENCE VALUE <1.0 (Negative) 27 REFERENCE VALUE <1.0 (Negative) 28 REFERENCE VALUE <1.0 (Negative) Test Performed by: [place] [address] [employer] Equipment Supervisor: Jaydon Braden II, M.D., Ph.D. 29 Serologic response to B. burgdorferi infection is not detected, but cannot rule out early infection during which low or undetectable antibody levels to B. burgdorferi may be present. If clinically indicated, a new serum specimen should be submitted in 7-14 days. Test Performed by: [place] [address] [employer] Equipment Supervisor: Jaydon Braden II, M.D., Ph.D. 30 REFERENCE VALUE <30.0 (Negative) Test Performed by: [place] [address] [employer] Equipment Supervisor: Jaydon Braden II, M.D., Ph.D. 31 Test Performed by: [place] [address] [employer] Equipment Supervisor: Jaydon Braden II, M.D., Ph.D. 32 Test Performed by: [place] [address] [employer] Equipment Supervisor: Jaydon Braden II, M.D., Ph.D. 33 REFERENCE VALUE <10.0 (Negative) 34 REFERENCE VALUE <10.0 (Negative) Test Performed by: [place] [address] [employer] Equipment Supervisor: Jaydon Braden II, M.D., Ph.D. 35 REFERENCE VALUE <20.0 (Negative) Test Performed by: [place] [address] [employer] Equipment Supervisor: Jaydon Braden II, M.D., Ph.D. 36 Test Performed by: [place] [address] [employer] Equipment Supervisor: Jaydon Braden II, M.D., Ph.D. 37 REFERENCE VALUE <4.0 (Negative) Test Performed by: [place] [address] [employer] Equipment Supervisor: Jaydon Braden II, M.D., Ph.D. 38 Negative serology. Celiac disease unlikely. However, approximately 10% of patients with celiac disease are seronegative. Also, patients who are already adhering to a gluten-free diet may be seronegative. If celiac disease is highly clinically suspected, consider HLA-DQ typing. Test Performed by: [place] [address] [employer] Equipment Supervisor: Jaydon Braden II, M.D., Ph.D. 39 REFERENCE VALUE <30.0 (Negative) Test Performed by: [place] [address] [employer] Equipment Supervisor: Jaydon Braden II, M.D., Ph.D. 40 ADDITIONAL INFORMATION This test was developed and its performance characteristics determined by [facility] in a manner consistent with CLIA requirements. This test has not been cleared or approved by the U.S. Food and Drug Administration. Test Performed by: [facility] - [address] [address] [employer] Equipment Supervisor: Jaydon Braden II, M.D., Ph.D. 41 Test Result Flag Unit RefValue Anti-Nuclear Antibody (CORBY), <1:40 <1:40 IgG <1:40 INTERPRETIVE INFORMATION: CORBY by IFA, IgG Anti-nuclear antibodies (CORBY) are seen in a variety of systemic rheumatic diseases and are determined by indirect fluorescence assay (IFA) using HEp-2 substrate with an IgG-specific conjugate. CORBY titers less than or equal to 1:80 have variable relevance while titers greater than or equal to 1:160 are considered clinically significant. These antibodies may precede clinical disease onset; however, healthy individuals and those with advanced age have been reported to be positive for CORBY. When observed, one of the five basic patterns is reported: homogeneous, peripheral/rim, speckled, centromere, or nucleolar. If cytoplasmic fluorescence is observed, it is noted. IFA methodology is subjective and has occasionally been shown to lack sensitivity for anti-SSA/Ro antibodies. Negative results do not necessarily rule out the presence of SSc. If clinical suspicion remains, consider further testing for U3-CEMENT GUN OPERATOR, PM/Scl, or Th/To antibodies associated with SSc. Performed by [facility] [address], [place] [id number] [email or web address], Ben Del Cid MD - Lab. Director Test Performed by: [facility]) [address] [place] [address] 42 REFERENCE VALUE <10.0 (Negative) 43 REFERENCE VALUE <10.0 (Negative) Test Performed by: [place] [address] [employer] Equipment Supervisor: Jaydon Braden II, M.D., Ph.D. 44 REFERENCE VALUE <4.0 (Negative) Test Performed by: [place] [address] [employer] Equipment Supervisor: Jaydon Braden II, M.D., Ph.D. 45 Negative serology. Celiac disease unlikely. However, approximately 10% of patients with celiac disease are seronegative. Also, patients who are already adhering to a gluten-free diet may be seronegative. If celiac disease is highly clinically suspected, consider HLA-DQ typing. Test Performed by: [place] [address] [employer] Equipment Supervisor: Jaydon Braden II, M.D., Ph.D. 46 REFERENCE VALUE Not Applicable 47 RESULT: HLA-B27 antigen was not detected. ADDITIONAL INFORMATION Method: Flow Cytometry Performing Laboratory CLIA# [id number] Test Performed by: [place] [address] [employer] Equipment Supervisor: Jaydon Braden II, M.D., Ph.D. 48 Negative for cANCA and pANCA patterns by immunofluorescence. ADDITIONAL INFORMATION This test was developed and its performance characteristics determined by [facility] in a manner consistent with CLIA requirements. This test has not been cleared or approved by the U.S. Food and Drug Administration. Test Performed by: [place] [address] [employer] Equipment Supervisor: Jaydon Braden II, M.D., Ph.D. 49 RESULT: No apparent monoclonal protein on serum electrophoresis. Test Performed by: [place] [address] [employer] Equipment Supervisor: Jaydon Braden II, M.D., Ph.D. 50 REFERENCE VALUE <20.0 (Negative) Test Performed by: [place] [address] [employer] Equipment Supervisor: Jaydon Braden II, M.D., Ph.D. 51 Serologic response to B. burgdorferi infection is not detected, but cannot rule out early infection during which low or undetectable antibody levels to B. burgdorferi may be present. If clinically indicated, a new serum specimen should be submitted in 7-14 days. Test Performed by: [place] [address] [employer] Equipment Supervisor: Jaydon Braden II, M.D., Ph.D. 52 Test Performed by: [place] [address] [employer] Equipment Supervisor: Jaydon Braden II, M.D., Ph.D. 53 Test Performed by: [place] [address] [employer] Equipment Supervisor: Jaydon Braden II, M.D., Ph.D. 54 Test Performed by: [place] [address] [employer] Equipment Supervisor: Jaydon Braden II, M.D., Ph.D. 55 REFERENCE VALUE <1.0 (Negative) 56 REFERENCE VALUE <1.0 (Negative) 57 REFERENCE VALUE <1.0 (Negative) 58 REFERENCE VALUE <1.0 (Negative) 59 REFERENCE VALUE <1.0 (Negative) 60 REFERENCE VALUE <1.0 (Negative) Test Performed by: [place] [address] [employer] Equipment Supervisor: Jaydon Braden II, M.D., Ph.D. 61 Test Performed by: [place] [address] [employer] Equipment Supervisor: Jaydon Braden II, M.D., Ph.D. 62 ADDITIONAL INFORMATION The thyroglobulin antibody testing method is an immunoenzymatic assay manufactured by [employer] and performed on the [employer] DXI 800. Values obtained from different assay methods or kits may be different and cannot be used interchangeably. The results cannot be interpreted as absolute evidence for the presence or absence of malignant disease. Test Performed by: [place] [address] [employer] Equipment Supervisor: Jaydon Braden II, M.D., Ph.D. 63 ORDERED INCORRECTLY: known test code 64 REFERENCE VALUE Not Applicable 65 RESULT: HLA-B27 antigen was not detected. ADDITIONAL INFORMATION Method: Flow Cytometry Performing Laboratory CLIA# [id number] Test Performed by: [place] [address] [employer] Equipment Supervisor: Jaydon Braden II, M.D., Ph.D. 66 Please check this week 67 Please check this week 68 ADDITIONAL INFORMATION The thyroglobulin antibody testing method is an immunoenzymatic assay manufactured by [employer] and performed on the [employer] DXI 800. Values obtained from different assay methods or kits may be different and cannot be used interchangeably. The results cannot be interpreted as absolute evidence for the presence or absence of malignant disease. Test Performed by: [place] [address] [employer] Equipment Supervisor: Jaydon Braden II, M.D., Ph.D. 69 Please check this week 70 RESULT: No apparent monoclonal protein on serum electrophoresis. Test Performed by: [place] [address] [employer] Equipment Supervisor: Jaydon Braden II, M.D., Ph.D. 71 Normal values may vary with age, season and geographic area. Titers above upper limits may be indicative of infection, however only a two dilution rise in titer is required to be considered significant. ASO titer will usually rise above upper limits within one week of exposure, increase to peak levels at 3-5 weeks and return to baseline level at 6-12 twelve months. 72 Test Performed by: [place] [address] [employer] Equipment Supervisor: Jaydon Braden II, M.D., Ph.D. 73 Negative for cANCA and pANCA patterns by immunofluorescence. ADDITIONAL INFORMATION This test was developed and its performance characteristics determined by [facility] in a manner consistent with CLIA requirements. This test has not been cleared or approved by the U.S. Food and Drug Administration. Test Performed by: [facility] [place] [address] [employer] Equipment Supervisor: Jaydon Braden II, M.D., Ph.D. 74 Please check this week 75 ADDITIONAL INFORMATION This test was developed and its performance characteristics determined by [facility] in a manner consistent with CLIA requirements. This test has not been cleared or approved by the U.S. Food and Drug Administration. Test Performed by: [facility] [place] [address] [employer] Equipment Supervisor: Jaydon Braden II, M.D., Ph.D. 76 Normal Range 180 to 914 Indeterminate Range 145 to 180 Deficient Range <145 77 Please check this week 78 Acute inflammation: >10.00 Procedures Date CPT Code Description Status Comment 06/20/2018 99497 Inject/Drain Joint/Bursa Completed Intermediate W/O US 03/20/2018 42265 Diffusing Capacity Completed 03/20/2018 76416 Plethysmography Determination Completed Lung Volumes & Per Airway Resist 03/20/2018 82247 Pulmonary Function><Bronchodil Completed 03/10/2018 22866 Sleep Study Unattended,HRT Completed Rate,Oxygen Sat,Resp Effort/Airflow 12/28/2016 Diabetic Retinal Eye Exam Completed Document: 12/28/16 - Consult Ophthalmology/Arleo 07/16/2014 12515 Rad Exam; Elbow, Comp Completed 12/26/2013 Mammogram Completed Encounters Type Date Location Provider CPT E/M Dx Office Visit 06/20/2018 [facility] [place] [address] M65.841 11:30a C.M.A. Office Visit 05/21/2018 [facility] [address] J45.909 9:00a Services Of [facility] G47.33 E66.01 Office Visit 04/28/2018 11:40a Rheumatology Services Jordan Glass 58025 K51.90 Of Splitter Tender M.D. Z79.899 R70.0 M70.62 Office Visit 03/24/2018 1:30p [facility] [place] [address] G47.33 Services [facility] James45.909 Z68.39 Office Visit 03/08/2018 3:45p [facility] Anthony Moore [address] G43.009 Office Visit 03/04/2018 9:30a [facility] [place] Whaley 96166 R06.83 [facility] J45.909 K21.9 E66.01 Z68.39 Office Visit 01/27/2018 10:00a Rheumatology Services Jordan Glass 05234 K51.90 Of Splitter Tender M.D. Z79.899 R70.0 M79.1 Z23 Office Visit 10/25/2017 2:20p [facility]umatology Services Jordan Glass 29324 K51.90 Of Splitter Tender M.D. Z79.899 R70.0 M79.1 Office Visit 07/26/2017 2:40p [facility]ology Services Jordan Glass 45530 K51.90 Of Splitter Tender M.D. Z79.899 R70.0 M79.1 F41.9 Office Visit 06/28/2017 11:20a [facility] [place] [address] L23.9 L71.8 Office Visit 05/17/2017 9:00a [facility] Anthony Moore 80483 G43.009 Z63.79 Office Visit 05/03/2017 11:20a [facility]ology Services Jordan Glass 77682 K51.90 Of Splitter Tender M.D. Z79.899 R70.0 M79.1 F41.9 Office Visit 02/01/2017 11:00a [facility]ology Services Jordan Glass 68642 K51.90 Of Splitter Tender M.D. Z79.899 R70.0 M79.1 Z23 Office Visit 11/02/2016 10:00a [facility]umatology Services Jordan Glass 97211 K51.90 Of Splitter Tender M.D. M70.62 M25.559 M70.61 R70.0 Office Visit 10/22/2016 8:00a [place] [address] M70.62 C.M.A. Office Visit 10/15/2016 11:00a [facility]ology Services Jordan Glass 98790 K51.90 Of Splitter Tender M.D. M25.559 M70.61 M70.62 R20.8 R70.0 Office Visit 05/27/2016 10:15a [facility] Anthony Moore 65424 G43.009 Office Visit 12/29/2015 10:15a [facility] Anthony Moore 96559 G43.909 Office Visit 08/15/2015 11:00a [facility] Anthony Moore 59546 G43.901 Office Visit 07/19/2015 4:16p [facility], Hannah Austin, 39607 K51.90 Hospitalists D.O. G43.901 E28.2 L93.2 Office Visit 07/18/2015 4:15p [facility],pc Hannah Austin, 86140 K51.90 Hospitalists D.O. G43.901 E28.2 L93.2 Office Visit 07/18/2015 11:16a [facility] Anthony Moore, 48932 G43.909 Office Visit 07/17/2015 4:15p [facility],pc Hannah Austin, 30374 G43.901 Hospitalists D.O. K51.90 E28.2 L93.2 Office Visit 07/17/2015 11:15a [facility] Anthony Moore 10825 G43.909 Office Visit 07/16/2015 4:14p [facility],pc Hannahaixa Avila, 35437 G43.901 Hospitalists D.O. K51.90 E28.2 L93.2 Office Visit 07/16/2015 11:14a [facility] [address] G43.909 Office Visit 07/15/2015 4:13p [facility], Anderson Hagen 20607 G43.901 Viki GROSS M.D. K51.90 E28.2 M32.9 Office Visit 10/22/2014 3:00p [facility] Siddhartha Nixon M.D. 69757 723.4 C.M.A. Office Visit 09/10/2014 3:15p [facility] S[facility]hartha Nixon M.D. 63394 723.4 C.M.A. Office Visit 09/09/2014 2:00p Rheumatology Services Kevin Veloz M.D. 19206 729.1 Of [facility] Office Visit 08/20/2014 3:00p [facility] S[facility]hartha Nixon M.D. 85340 726.0 C.M.A. Office Visit 07/16/2014 2:00p [facility] Radha 60567 726.0 C.M.A. Chloé Callahan Plan of Care Future Appointment(s):09/08/2018 11:40 am - Jordan Glass M.D. at Rheumatology [facility]11/24/2018 10:45 am - Mar Reynolds DNP, RN, EMBOSSER OPERATOR- at Pul[facility]ology [facility] Sleep [facility]09/29/2018 9:15 am - Anthony Moore MD at [facility] [id number]/28/2018 - Jordan Glass M.D.K51.90 Ulcerative colitis , unspecified, without complicationsNew Medication:Methotrexate Sodium 50 mg/ 2MLZ79.899 Other [facility] (current) drug uxslmltV14.7 AkjdlihpwjahK75.4 Inflammatory nhlmrdexiyoppswE84.9 Vitamin D deficiency, soypeafgjkiT49.9 Hyperglycemia, unspecifiedFollow up:Follow up in 6 weeks or sooner if [id number] Encounter for immunization
--- OUTSIDE RECORDS SUMMARY | 2018-08-12 17:36 | XMS REPORT ---
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 mouth at bedtime. as needed for anxiety mdd 1 mdd 1 MDD 1 MDD 1 Methotrexate 02/01 Active Tablets 2.5mg 90tab take9 K51.90 s capsules/t Quan, ablets by M.D. mouth once weekly on Tuesday evenings Folic Acid 02/01 Active Tablets 1mg 90tab take one R70.0 s capsule/ta Quan, blet daily M.D. by mouth Humira Pen 11/08 Active PNKT 40mg/0.8M 2unit inject 40 K51.90 L s mg Quan, subcutaneo M.D. usly every other week a Tizanidine HCL 11/02 Active Capsules 2mg 30cap take 1 to K51.90 s 2 capsules Quan, by mouth M.D. if needed AT Night For Spasms Butalbital/Acetam 01/04 Active Tablets 50-325-40 10tab 1 by mouth Anthony inoanita/Caffeine /2016 mg s as needed Oscar migraine may repeat in 2 hours MDD 2 Topiramate 12/28 Active Tablets 25mg 150ta 2 by mouth Anthony /2016 bs every genesis Moore MD and 2 by mouth every night Albuterol Sulfate Active prn Unknown / Singulair Active 10mg 1 po qd Unknown /0000 Xyzal Active Tab 1 po qd Unknown / Spironolactone Active Tablets 25mg 30tab 2 po qam Unknown /0000 s and 3 q evening Duloxetine HCL Active Caps DR 60mg 1 po daily Niziol, /0000 Part (total Memo, dose 90 MD mg) Dulera Active Aerosol 100-5mcg/ 2 puff Unknown /0000 Act twice a day Spiriva Active Capsules 18mcg 1 unit Unknown Handihaler /0000 inhalation daily Duloxetine HCL Active Caps DR 30mg 1 by mouth Unknown /0000 Part every day (total dose 90 mg) Vit C Active 1000mg qd Unknown /0000 Zinc Active Tablets 50mg qd Unknown /0000 Vitamin D Active Capsules 42841Lvdh take one Unknown (Ergocalciferol) / capsule by mouth once weekly Biotin Active Capsules 10,000 qd Vitamin B-12 Active Tablets Sub 500mcg 1 by mouth every day Multivitamin Active Chewtabs 1 tabs Unknown Childrens once daily Caltrate 600+D Active Chewtabs 600-800mg take one Unknown Plus Minerals -Unit capsule/ta blet by mouth twice daily Essential Oils Active as needed Omeprazole Active Capsules DR 20mg 1 by mouth every day Tramadol HCL Active Tablets 50mg 60tab 1 or 2 as s needed for Quan, pain MDD 2 M.DMaikel MDD 2 Cefaly Dual 03/08 Hx Device 1unit Dual Anthony Device /2017 s Device Oscar, - with 1 05/20 package electrodes . dxG43.009 Xanax 05/03 Hx Tablets 0.5mg 14tab Take one K51.90 s tablet/cap Quan - arcelia by Chloé 07/26 mouth at bedtime. as needed for anxiety Methotrexate 02/01 Hx Tablets 2.5mg take 6 capsules/t Quan, - ablets by Chloé 02/01 mouth once weekly Methotrexate 02/01 Hx Tablets 2.5mg take 6 K51.90 capsules/t Quan, - ablets by Chloé 05/03 mouth weekly Humira Pen-Crohns 11/08 Hx PNKT 40mg/0.8M 6unit 160mg sq K51.90 Jordan Diseasesrt L s inj on Quan, - day 1; 80 M.D. 02/01 mg sq inj /2016 on day 15 then 40 mg sq inj on day 29 and q 2 weeks thereafter Humira Pen 11/05 Hx PNKT 40mg/0.8M 2unit 160 mg L s initially Quan, - on Day 1, M.Nikolai 11/08 followed by 80 mg two weeks later, followed 2 weeks later by 40mg SQ every 2 weeks D3 Adult 11/02 Hx Chewtabs 1000Unit 90uni take one K51.90 ts capsule/ta Quan, - blet daily M.D. 10/25 by mouth Butalbital/Acetam 12/28 Hx Tablets 50-500-40 10tab 1 by mouth Anthony inophen/Caffeine /2016 mg s as needed Marcio Moore migraine 01/04 in 2 hours Topamax 09/18 Hx Tablets 25mg 270ta 1 po qam bs and 2 po Oscar - qpm 12/28 Amitriptyline HCL 08/06 Hx Tablets 10mg 90tab 2 po q hsx s 1week then Oscar - 1 po qhs 12/01 then stop Methylprednisolon 08/20 Hx Tablets 32mg 6tabs 1 tab by Siddhartha jus Nixon, - every day M.D. 09/09 for days, then start dose pack taper Methylprednisolon 08/20 Hx Tablets 4mg 1pack take as Siddhartha hill () catalino Nixon - M.D. 09/09 Gabapentin 08/20 Hx Capsules 300mg 90cap 1 po qhs, Siddhartha s january Hussain, - increase M.D. 10/21 to 1 tabs /2014 po tid after 5 days if needed, then 2 tabs po tid after 10 days if needed for pain Dulera 00 Hx 2 puffs Unknown /0000 bid - 10/21 Omeprazole 00/00 Hx Unknown / - 09/09 Xanax 00/ Hx Unknown /0000 - 09/09 Ultram ER Hx prn Unknown / - 10/21 Remicade Hx 800mg q 6 weeks Unknown /0000 IV - infusion 02/01 Celexa 00 Hx 20mg po qd Unknown /0000 - 08/03 Fluticasone Hx Suspension 50mcg/Act 16uni 2 sprays Unknown ts each - nostril 10/21 daily needed Topiramate Hx Tablets 100mg 270ta 1 by mouth Unknown /0000 bs qd - 08/03 Methotrexate Hx Tab 2.5mg 90tab 8 by Unknown /0000 s mouth once - every 02/01 night Folic Acid 00/00 Hx 1 cap po Unknown /0000 daily - 02/01 Butalbital/Acetam 00 Hx Capsules 50-325-40 Take 1 To Unknown inophen/Caffeine /0000 mg 2 Capsules - Every 4 /28 Hours prn /2015 Dulox[address] HCL [address] 30mg 1 by mouth Unknown /0000 Part every day - in 10/15 addition 2017 to 60mg cap Phendimetrazine 00 Hx Tablets 35mg 2 tabs bid Unknown Tartrate /0000 prn wt - loss 03/03 Womans One A Day Hx Unknown Multi Vit /0000 - 02/01 Lidocaine Hx Patches 5% apply Unknown / patch up - to 12 02/01 hours a day. Prednisone Hx Tablets 10mg Take 4 Unknown /0000 Tablets By - Mouth On 05/03 Days 1&2, 3 On Days 3&4, 2 On Days 5&6, 1 O Amoxicillin/Clavu Hx Tablets 500-125mg take 1 Unknown lanate Potassium /0000 tablet by - mouth 02/01 twice a day Benzonatate Hx Capsules 100mg Unknown /0000 - 05/03 Augmentin Hx Suspension 250-62.5m 10 Unknown /0000 Rec g/5ML milliliter - s three 05/03 times a day for 10 days Cefdinir Hx Capsules 300mg Unknown /0000 - 01/02 Medications Administered in Office Medication Date Status Form Strength Qnty SIG Indications Ordering Provider Celestone 3 mg Administered Injection Memo and 3mg Sammi Pedersen MD Immunizations CPT Code Status Date Vaccine Reaction Lot # [id number] Given 01/27/2018 Tetanus And Diptheria (Td) no immediate reaction [id number] For Adult Use Preservative noted Free [id number] Given 02/01/2017 Pneumococcal Conjugate No reaction noted [id number] Vaccine 13 Valent For Intramuscular Use Vital Signs Date Vital Result Comment 07/11/2018 Height 68 inches 5'8" Weight 265.00 [...] 4.0 GPL 34 Laboratory test finding 10/15/2016 Anti Double Stranded Dna AB <12.3 IU/mL 35 Vitamin D 1,25-Dihydroxy 75 pg/mL 18-78 36 Nuclear Ab ([place]) by Ifa, IgG See Comment 37 Cardiolipin Igg/Igm 10/15/2016 Phospholipid Ab IgM, S < 4.0 MPL 38 Phospholipid Ab IgG < 4.0 GPL 39 Celiac Panel 10/15/2016 Tissue Transglutaminase IgA Ab <1.2 U/mL 40 Immunoglobulin A 268 mg/dL 61 - 356 Celiac Interpretation See Comment 41 Hla B27 10/15/2016 Hla B27 Negative 42 Hla B27 Interp See Comment 43 Neutrophil Cytoplasmic AB 10/15/2016 C-Anca Negative Negative P-Anca Negative Negative 44 Protein Electrophoresis 10/15/2016 Total Protein(Pep) 7.8 g/dL 6.3 - 7.9 Albumin 3.8 g/dL 3.4-4.7 Alpha-1 Globulin 0.3 g/dL 0.1-0.3 Alpha-2 Globulin 1.2 g/dL 0.6-1.0 Beta Globulin 1.3 g/dL 0.7-1.2 Gamma Globulin 1.3 g/dL 0.6-1.6 Albumin/Globulin Ratio 0.95 Impression See Comment 45 Laboratory test finding 10/15/2016 Cyclic Citrullinated Pep Igg <15.6 U 46 Lyme Disease Serology Negative Negative 47 Complement C3 136 mg/dL 75 - 175 48 Complement C4 40 mg/dL 14 - 40 49 Rheumatoid Factor <15 IU/mL <15 50 Kita Igg AB Reflex 10/15/2016 SS-A/Ro Antibody <0.2 U 51 SS-B/La Antibody <0.2 U 52 Sm (Shepherd) IgG Antibody <0.2 U 53 U1-nRNP Antibody 0.2 U 54 Scl-70 (Scleroderma) Antibody <0.2 U 55 Greer-1 Antibody <0.2 U 56 Laboratory test finding 10/15/2016 Angiotension Converting Enzyme 56 U/L 8 - 53 57 Thyroglobulin Antibody <1.8 IU/mL <4.0 58 Laboratory test finding 10/15/2016 Miscellaneous Test DELETED 59 Hla B27 10/15/2016 Hla B27 Negative 60 Hla B27 Interp See Comment 61 Laboratory test finding 10/15/2016 Free T3 3.60 pg/mL 2.5-3.9 62 Anti-Thyroid Antibodies Screen 10/15/2016 Thyroperoxidase AB 0.77 IU/mL < 9 63 Thyroglobulin Antibody <1.8 IU/mL <4.0 64 Laboratory test finding 10/15/2016 Creatine Kinase 259 U/L High 10-223 65 Protein Electrophoresis 10/15/2016 Total Protein(Pep) 7.8 g/dL 6.3 - 7.9 Albumin 3.8 g/dL 3.4-4.7 Alpha-1 Globulin 0.3 g/dL 0.1-0.3 Alpha-2 Globulin 1.2 g/dL 0.6-1.0 Beta Globulin 1.3 g/dL 0.7-1.2 Gamma Globulin 1.3 g/dL 0.6-1.6 Albumin/Globulin Ratio 0.95 Impression See Comment 66 Laboratory test 10/15/2016 Antistreptolysin O Titer Negative IU/mL <200 Iu/mL 67 finding Angiotension Converting Enzyme 56 U/L 8 - 53 68 Anca AB Ser If 10/15/2016 C-Anca Negative Negative P-Anca Negative Negative 69 Vitamin D 1,25 And Vitamin 10/15/2016 Vitamin D Total 25(Oh) 22.5 ng/mL Low 30-50 70 D,2 Vitamin D 1,25-Dihydroxy 75 pg/mL 18-78 71 Vitamin B12 And Folate Serum 10/15/2016 Vitamin B12 404 pg/mL 180-914 72 Folic Acid (Folate) > 20.00 ng/mL >3.99 73 Celiac Panel 10/15/2016 Tissue Transglutaminase IgA Ab <1.2 U/mL 74 Immunoglobulin A 268 mg/dL 61 - 356 Celiac Interpretation See Comment 75 CBC Auto Diff 10/15/2016 White Blood Count [...] 0-2 Nucleated Red Blood Cells % 0 Laboratory test finding 10/15/2016 Cyclic Citrullinated Pept IgG <15.6 U 76 Rheumatoid Factor <15 IU/mL <15 77 Laboratory test finding 08/20/2014 C Reactive [...] REFERENCE VALUE <1:80 (Negative) Test Performed by: [address] [address] 3 REFERENCE VALUE <0.4 (Negative) 4 REFERENCE VALUE <0.4 (Negative) Test Performed by: [facility] [address] [place] [address] 5 Low risk: <1.00 Average risk: 1.00-3.00 High risk: >3.00 6 Test Performed by: [facility] - [address] [place] [address] 7 Acute inflammation: >10.00 8 Because ethnic [...] REFERENCE VALUE <1.0 (Negative) Test Performed by: [address] [address] Art Librarian: Jaydon Braden II, M.D., Ph.D. 29 Serologic response to B. burgdorferi infection is not detected, but cannot rule out early infection during which low or undetectable antibody levels to B. burgdorferi may be present. If clinically indicated, a new serum specimen should be submitted in 7-14 days. Test Performed by: [place] [address] Art Librarian: Jyadon Braden II, M.D., Ph.D. 30 REFERENCE VALUE <30.0 (Negative) Test Performed by: [place] [address] Art Librarian: Jaydon Braden II, M.D., Ph.D. 31 Test Performed by: [place] [address] Art Librarian: Jaydon Braden II, M.D., Ph.D. 32 Test Performed by: [place] [address] Art Librarian: Jaydon Braden II, M.D., Ph.D. 33 REFERENCE VALUE <10.0 (Negative) 34 REFERENCE VALUE <10.0 (Negative) Test Performed by: [place] [address] Art Librarian: Jaydon Braden II, M.D., Ph.D. 35 REFERENCE VALUE <30.0 (Negative) Test Performed by: [place] [address] Art Librarian: Jaydon Braden II, M.D., Ph.D. 36 ADDITIONAL INFORMATION This test was developed and its performance characteristics determined by [facility] in a manner consistent with CLIA requirements. This test has not been cleared or approved by the U.S. Food and Drug Administration. Test Performed by: [facility] - [address] [address] Art Librarian: Jaydon Braden II, M.D., Ph.D. 37 Test Result Flag Unit RefValue Anti-Nuclear Antibody [...] clinical suspicion remains, consider further testing for U3-SALES COMPENSATION ANALYST, PM/Scl, or Th/To antibodies associated with SSc. Performed by [email or web address], [address] [place] [address] [email or web address], Ben Del Cid MD - Lab. Director Test Performed by: [email or web address] [address] [place] [address] 38 REFERENCE VALUE <10.0 (Negative) 39 REFERENCE VALUE <10.0 (Negative) Test Performed by: [place] [address] Art Librarian: Jaydon Braden II, M.D., Ph.D. 40 REFERENCE VALUE <4.0 (Negative) Test Performed by: [place] [address] Art Librarian: Jaydon Braden II, M.D., Ph.D. 41 Negative serology. Celiac disease unlikely. However, approximately 10% of patients with celiac disease are seronegative. Also, patients who are already adhering to a gluten-free diet may be seronegative. If celiac disease is highly clinically suspected, consider HLA-DQ typing. Test Performed by: [facility] [place] [address] Art Librarian: Jaydon Braden II, M.D., Ph.D. 42 REFERENCE VALUE Not Applicable 43 RESULT: HLA-B27 antigen was not detected. ADDITIONAL INFORMATION Method: Flow Cytometry Performing Laboratory CLIA# [id number] Test Performed by: [place] [address] Art Librarian: Jaydon Braden II, M.D., Ph.D. 44 Negative for cANCA and pANCA patterns by immunofluorescence. ADDITIONAL INFORMATION This test was developed and its performance characteristics determined by [facility] in a manner consistent with CLIA requirements. This test has not been cleared or approved by the U.S. Food and Drug Administration. Test Performed by: [place] [address] Art Librarian: Jaydon Braden II, M.D., Ph.D. 45 RESULT: No apparent monoclonal protein on serum electrophoresis. Test Performed by: [place] [address] Art Librarian: Jaydon Braden II, M.D., Ph.D. 46 REFERENCE VALUE <20.0 (Negative) Test Performed by: [place] [address] Art Librarian: Jaydon Braden II, M.D., Ph.D. 47 Serologic response to B. burgdorferi infection is not detected, but cannot rule out early infection during which low or undetectable antibody levels to B. burgdorferi may be present. If clinically indicated, a new serum specimen should be submitted in 7-14 days. Test Performed by: [place] [address] Art Librarian: Jaydon Braden II, M.D., Ph.D. 48 Test Performed by: [place] [address] Art Librarian: Jaydon Braden II, M.D., Ph.D. 49 Test Performed by: [place] [address] Art Librarian: Jaydon Braden II, M.D., Ph.D. 50 Test Performed by: [place] [address] Art Librarian: Jaydon Braden II, M.D., Ph.D. 51 REFERENCE VALUE <1.0 (Negative) 52 REFERENCE VALUE <1.0 (Negative) 53 REFERENCE VALUE <1.0 (Negative) 54 REFERENCE VALUE <1.0 (Negative) 55 REFERENCE VALUE <1.0 (Negative) 56 REFERENCE VALUE <1.0 (Negative) Test Performed by: [place] [address] Art Librarian: Jaydon Braden II, M.D., Ph.D. 57 Test Performed by: [place] [address] Art Librarian: Jaydon Braden II, M.D., Ph.D. 58 ADDITIONAL INFORMATION The thyroglobulin antibody testing method is an immunoenzymatic assay manufactured by [employer] and performed on the Caterna DXI 800. Values obtained from different assay methods or kits may be different and cannot be used interchangeably. The results cannot be interpreted as absolute evidence for the presence or absence of malignant disease. Test Performed by: [place] [address] Art Librarian: Jaydon Braden II, M.D., Ph.D. 59 ORDERED INCORRECTLY: known test code 60 REFERENCE VALUE Not Applicable 61 RESULT: HLA-B27 antigen was not detected. ADDITIONAL INFORMATION Method: Flow Cytometry Performing Laboratory CLIA# [id number] Test Performed by: [place] [address] Art Librarian: Jaydon Braden II, M.D., Ph.D. 62 Please check this week 63 Please check this week 64 ADDITIONAL INFORMATION The thyroglobulin antibody testing method is an immunoenzymatic assay manufactured by [employer]. and performed on the Caterna DXI 800. Values obtained from different assay methods or kits may be different and cannot be used interchangeably. The results cannot be interpreted as absolute evidence for the presence or absence of malignant disease. Test Performed by: [place] [address] Art Librarian: Jaydon Braden II, M.D., Ph.D. 65 Please check this week 66 RESULT: No apparent monoclonal protein on serum electrophoresis. Test Performed by: [place] [address] Art Librarian: Jaydon Braden II, M.D., Ph.D. 67 Normal values may vary with age, season and geographic area. Titers above upper limits may be indicative of infection, however only a two dilution rise in titer is required to be considered significant. ASO titer will usually rise above upper limits within one week of exposure, increase to peak levels at 3-5 weeks and return to baseline level at 6-12 twelve months. 68 Test Performed by: [place] [address] Art Librarian: Jaydon Braden II, M.D., Ph.D. 69 Negative for cANCA and pANCA patterns by immunofluorescence. ADDITIONAL INFORMATION This test was developed and its performance characteristics determined by [facility] in a manner consistent with CLIA requirements. This test has not been cleared or approved by the U.S. Food and Drug Administration. Test Performed by: [facility] [place] [address] Art Librarian: Jaydon Braden II, M.D., Ph.D. 70 Please check this week 71 ADDITIONAL INFORMATION This test was developed and its performance characteristics determined by [facility] in a manner consistent with CLIA requirements. This test has not been cleared or approved by the U.S. Food and Drug Administration. Test Performed by: [facility] [place] [address] Art Librarian: Jaydon Braden II, M.D., Ph.D. 72 Normal Range 180 to 914 Indeterminate Range 145 to 180 Deficient Range <145 73 Please check this week 74 REFERENCE VALUE <4.0 (Negative) Test Performed by: [place] [address] Art Librarian: Jaydon Braden II, M.D., Ph.D. 75 Negative serology. Celiac disease unlikely. However, approximately 10% of patients with celiac disease are seronegative. Also, patients who are already adhering to a gluten-free diet may be seronegative. If celiac disease is highly clinically suspected, consider HLA-DQ typing. Test Performed by: [facility] [place] [address] Art Librarian: Jaydon Braden II, M.D., Ph.D. 76 REFERENCE VALUE <20.0 (Negative) Test Performed by: [facility] - [address] [address] Art Librarian: Jaydon Braden II, M.D., Ph.D. 77 Test Performed by: [address] [address] Art Librarian: Jaydon Braden II, M.D., Ph.D. 78 Acute inflammation: >10.00 Procedures Date CPT Code Description Status Comment 06/20/2018 66640 Inject/Drain Joint/Bursa Completed Intermediate W/O US 03/20/2018 02771 Diffusing Capacity Completed 03/20/2018 13718 Plethysmography Determination Completed Lung Volumes & Per Airway Resist 03/20/2018 83731 Pulmonary Function><Bronchodil Completed 03/10/2018 10478 Sleep Study Unattended,HRT Completed Rate,Oxygen Sat,Resp Effort/Airflow 12/28/2016 Diabetic Retinal Eye Exam Completed Document: 12/28/16 - Consult Ophthalmology/Arleo 07/16/2014 94333 Rad Exam; Elbow, Comp Completed 12/26/2013 Mammogram Completed Encounters Type Date Location Provider CPT E/M Dx Office Visit 06/20/2018 [place] [address] M65.841 11:30a C.M.A. Office Visit 05/21/2018 [facility] [address] J45.909 9:00a Services Of [facility] G47.33 E66.01 Office Visit 04/28/2018 11:40a Rheumatology Services Jordan Glass 70843 K51.90 Of [facility] Luevano Z79.899 R70.0 M70.62 Office Visit 03/24/2018 1:30p [facility] [address] G47.33 Services Of [facility] J45.909 Z68.39 Office Visit 03/08/2018 3:45p [facility] Anthony Moore 02520 G43.009 Office Visit 03/04/2018 9:30a [facility] [place] Whaley 48074 R06.83 Services Of [facility] OBREGON J45.909 K21.9 E66.01 Z68.39 Office Visit 01/27/2018 10:00a Rheumatology Services Jordan Glass 07248 K51.90 Of Spray Dry Operator M.D. Z79.899 R70.0 M79.1 Z23 Office Visit 10/25/2017 2:20p [facility]ology Services Jordan Glass 89294 K51.90 Of Spray Dry Operator M.D. Z79.899 R70.0 M79.1 Office Visit 07/26/2017 2:40p [facility]ology Services Jordan Glass 32391 K51.90 Of Spray Dry Operator M.D. Z79.899 R70.0 M79.1 F41.9 Office Visit 06/28/2017 11:20a [facility] [place] [address] L23.9 L71.8 Office Visit 05/17/2017 9:00a [facility] Anthony Moore 14869 G43.009 Z63.79 Office Visit 05/03/2017 11:20a Rheumatology Services Jordan Glass 72509 K51.90 Of Spray Dry Operator M.D. Z79.899 R70.0 M79.1 F41.9 Office Visit 02/01/2017 11:00a Rheumatology Services Jordan Glass 07250 K51.90 Of Spray Dry Operator M.D. Z79.899 R70.0 M79.1 Z23 Office Visit 11/02/2016 10:00a [facility]ology Services Jordan Glass 72152 K51.90 Of Spray Dry Operator M.D. M70.62 M25.559 M70.61 R70.0 Office Visit 10/22/2016 8:00a [place] [address] M70.62 C.M.A. Office Visit 10/15/2016 11:00a [facility]umatology Services Jordan Glass 39789 K51.90 Of Spray Dry Operator M.D. M25.559 M70.61 M70.62 R20.8 R70.0 Office Visit 05/27/2016 10:15a [facility] Anthony Moore 80078 G43.009 Office Visit 12/29/2015 10:15a [facility] Anthony Moore 24197 G43.909 Office Visit 08/15/2015 11:00a [facility] Anthony Moore, 03396 G43.901 Office Visit 07/19/2015 4:16p [facility] Hannah Austin, 43333 K51.90 Hospitalists D.O. G43.901 E28.2 L93.2 Office Visit 07/18/2015 4:15p [facility] Hannah Austin, 95916 K51.90 Hospitalists D.O. G43.901 E28.2 L93.2 Office Visit 07/18/2015 11:16a [facility] Anthony Moore, 61219 G43.909 Office Visit 07/17/2015 4:15p [facility] Hannah Avila, 33010 G43.901 Hospitalists D.O. K51.90 E28.2 L93.2 Office Visit 07/17/2015 11:15a [facility] Anthony Moore, 61673 G43.909 Office Visit 07/16/2015 4:14p [facility] Hannah Avila, 14205 G43.901 Hospitalists D.O. K51.90 E28.2 L93.2 Office Visit 07/16/2015 11:14a [facility] [address] G43.909 Office Visit 07/15/2015 4:13p [facility], Anderson Hagen 21373 G43.901 Hospitalists Chloé GROSS K51.90 E28.2 M32.9 Office Visit 10/22/2014 3:00p [facility] Of Siddhartha Nixno M.D. 81376 723.4 C.M.A. Office Visit 09/10/2014 3:15p [facility] Of Siddhartha Nixon M.D. 29252 723.4 C.M.A. Office Visit 09/09/2014 2:00p Rheumatology Services Kevin Veloz M.D. 54008 729.1 Of [facility] Office Visit 08/20/2014 3:00p [facility] Of Siddhartha Nixon M.D. 15033 726.0 C.M.A. Office Visit 07/16/2014 2:00p [facility] [place] 42332 726.0 Oswaldo Callahan M.D. Plan of Care Future Appointment(s):11/24/2018 10:45 am - Mar Reynolds DNP, RN, HEALTHCARE ACCOUNT MANAGER- at [facility]07/28/2018 11:40 am - Jordan Glass M.D. at Rheumatology Services [facility]09/29/2018 9:15 am - Anthony Moore MD at [id number]/11/2018 - Jessica Dobbs MDZ01.419 En[facility]tr for ob gyn physician assistant exam (general) (routine) w/o abn findingsComments:Plan removal Liletta IUD 2018 and insert Mirena IUDZ12.31 Encntr screen mammogram for malignant neoplasm of breast
[2018-08-12 17:56] VITALS: BP 133/90
[2018-08-12] MEDS ORDERED: Sulfamethox/Trimethoprim DS 800/160* TAB PO ONE (18:06)
--- NOTE | 2018-08-12 18:06 | UC ---
Skin Complaint HPI - HPI Summary HPI Summary: left lateral lower leg painful red and swollen after getting cut while shaving one week ago--patient is immune suppressed - History of Current Complaint Chief Complaint: UCWounds Time Seen by Provider: 08/12/18 17:58 Stated Complaint: ANKLE LACERATION, AND SWOLLEN FOOT Hx Obtained From: Patient Hx Last Menstrual Period: IUD ?: No Onset/Duration: Gradual Onset, Lasting Days - 7, Still Present Skin Exposure Onset/Duration: Weeks Ago - 1 Timing: Constant Pain Intensity: 3 Pain Scale Used: 0-10 Numeric Location: Discrete Character: Swelling - left lateral lower leg and ankle, Pain, Redness - around laceration on left lower leg Aggravating Factor(s): Nothing Alleviating Factor(s): Nothing - Allergy/Home Medications Allergies/Adverse Reactions: Allergies Allergy/AdvReac Type Severity Reaction Status Date / Time clarithromycin [From Biaxin] Allergy Hives Verified 08/12/18 17:43 Home Medications: Home Medications Methotrexate Sodium/Pf [Methotrexate 1 gm Vial] 0.9 ml SUBCUT WEEKLY 08/12/18 [ History Confirmed 08/12/18] traMADol TAB* [Ultram*] 50 mg PO BEDTIME PRN 08/12/18 [History Confirmed ] Review of Systems All Other Systems Reviewed And Are Negative: Yes Constitutional: Positive: Negative Skin: Positive: Other - laceration/skin avulsion with scab about 5mm wide and 6 cm long and surrounding erythema Eyes: Positive: Negative ENT: Positive: Negative Respiratory: Positive: Negative Cardiovascular: Positive: Negative Gastrointestinal: Positive: Negative Genitourinary: Positive: Negative Motor: Positive: Negative Neurovascular: Positive: Negative Musculoskeletal: Positive: Arthralgia - left lateral lower leg, Edema - lateral left lower leg Neurological: Positive: Negative Psychological: Positive: Negative Is Patient Immunocompromised?: Yes PMH/Surg Hx/FS Hx/Imm Hx Previously Healthy: No - lupus, colitis, pcos - Surgical History Surgical History: Yes Surgery Procedure, Year, and Place: surgery for detatched retna; silicone buckle. hernia surg. foot surg. ear tubes. tonsilectomy. pin placement left elbow - Family History Known Family History: Positive: Cardiac Disease, Hypertension Family History: Dyslipidemia - Social History Occupation: Employed Full-time Lives: With Family Alcohol Use: None Substance Use Type: None Smoking Status (MU): Never Smoked Tobacco Have You Smoked in the Last Year: No - Immunization History Most Recent Influenza Vaccination: June 2015 Most Recent Tetanus Shot: unknown Most Recent Pneumonia Vaccination: never Physical Exam Triage Information Reviewed: Yes Appearance: Well-Appearing, No Pain Distress, Obese Vital Signs: Initial Vital Signs Temp 96.8 F 08/12/18 17:51 Pulse 94 08/12/18 17:51 Resp 18 08/12/18 17:51 BP 133/90 08/12/18 17:51 Pulse Ox 100 08/12/18 17:51 Vital Signs Reviewed: Yes Eye Exam: Normal Eyes: Positive: Conjunctiva Clear ENT Exam: Normal ENT: Positive: Normal ENT inspection, Hearing grossly normal, Pharynx normal. Negative: Trismus, Muffled voice, Hoarse voice Dental Exam: Normal Neck exam: Normal Neck: Positive: Supple, Nontender Respiratory Exam: Normal Respiratory: Positive: Chest non-tender, No respiratory distress, No accessory muscle use Cardiovascular Exam: Normal Cardiovascular: Positive: Pulses Normal, Brisk Capillary Refill Musculoskeletal Exam: Other Musculoskeletal: Positive: Strength Intact, ROM Intact, Edema @ - left lateral lower leg Neurological Exam: Normal Neurological: Positive: Alert, Muscle Tone Normal Psychological Exam: Normal Skin: Positive: Other - open area from cut shaving 1 week ago with surrounding erythema Course/Dx - Course Course Of Treatment: elevated warm compress bactroban, bactrim---hold aldactone untill discussed with PCP on Tuesday---follow with pcp - Diagnoses Provider Diagnoses: wound infection left lateral lower leg Discharge - Sign-Out/Discharge Documenting (check all that apply): Patient Departure All imaging exams completed and their final reports reviewed: No Studies - Discharge Plan Condition: Stable Disposition: HOME Prescriptions: Sulfamethox/Trimethoprim DS* [Bactrim DS 800/160 TAB*] 1 tab PO BID #14 tab Patient Education Materials: Wound Infection (ED), Warm Compress or Soak (ED) Forms: *Work Release Referrals: Memo Victoria MD [Primary Care Provider] - 08/14/18 Additional Instructions: Hold Spironolactone until you discuss restarting this medication with Dr. Glass on Tuesday--due to some potential interactions and with BActrim and Spironolactone raising your potassium - Billing Disposition and Condition Condition: STABLE Disposition: Home
[2018-08-12] MEDS ORDERED: Mupirocin 2% OINT* TUBE TOPICAL ONE (18:07)
== END 2018-08-12 18:30 | disposition home or self-care (01) ==
LOC: UCEAST 17:30
DX: L08.9 Local infection of the skin and subcutaneous tissue, unspecified (principal); M32.9 Systemic lupus erythematosus, unspecified; Z88.1 Allergy status to other antibiotic agents
CPT/HCPCS: 99213; A9270-GY; G0463

== ENCOUNTER 2018-08-16 14:15 | Emergency (ER) | payer BC ==
[2018-08-16 15:22] VITALS: BP 153/99
--- NOTE | 2018-08-16 15:43 | UC ---
Complaint Female HPI - HPI Summary HPI Summary: 43 y/o female presents to the urgent care c/o was here last week for a cut n foot is on bactrim, then developed UTI smptoms last night and today. has urinary incontinence. frequency burning. - History Of Current Complaint Chief Complaint: UCGU Stated Complaint: DYSURIA Time Seen by Provider: 08/16/18 15:28 Hx Obtained From: Patient Hx Last Menstrual Period: IUD Pain Intensity: 6 - Allergies/Home Medications Allergies/Adverse Reactions: Allergies Allergy/AdvReac Type Severity Reaction Status Date / Time clarithromycin [From Biaxin] Allergy Hives Verified 08/16/18 15:22 PMH/Surg Hx/FS Hx/Imm Hx - Surgical History Surgical History: Yes Surgery Procedure, Year, and Place: surgery for detatched retna; silicone buckle. hernia surg. foot surg. ear tubes. tonsilectomy. pin placement left elbow - Family History Known Family History: Positive: Cardiac Disease, Hypertension Family History: Dyslipidemia - Social History Alcohol Use: Rare Substance Use Type: None Smoking Status (MU): Never Smoked Tobacco Have You Smoked in the Last Year: No - Immunization History Most Recent Influenza Vaccination: June 2015 Most Recent Tetanus Shot: unknown Most Recent Pneumonia Vaccination: never Physical Exam - Summary Physical Exam Summary: VITAL SIGNS: Reviewed. GENERAL: Patient is a well developed and nourished female who is sitting comfortable in the examining table. Patient is not in any acute respiratory distress. HEAD AND FACE: No signs of trauma. No ecchymosis, hematomas or skull depressions. No sinus tenderness. EYES: PERRLA, EOMI x 2, No injected conjunctiva, clear watery eyes, no nystagmus. No photophobia. EARS: Hearing grossly intact. Ear canals and tympanic membranes are within normal limits. MOUTH: pharynx with no erythema, no exudates,no palatal petechiae. no B/L tonsillar enlargement Uvula in midline. NECK: Supple, trachea is midline, no lymphadenopathy, no JVD, no carotid bruit, no c-spine tenderness, neck with full ROM. CHEST: Symmetric, no tenderness at palpation LUNGS: Clear to auscultation bilaterally. No wheezing or crackles. CVS: Regular rate and rhythm, S1 and S2 present, no murmurs or gallops appreciated. ABDOMEN: Soft, non-tender. No signs of distention. No rebound no guarding, and no masses palpated. Bowel sounds are normal. BACK:no scoliosis or lesions, non tender to palpation, No B/L CVA tenderness EXTREMITIES: FROM in all major joints, no edema, no cyanosis or clubbing. NEURO: Alert and oriented x 3. No acute neurological deficits. Speech is normal and follows commands. SKIN: Dry and warm Triage Information Reviewed: Yes Vital Signs: Initial Vital Signs Temp 96.5 F 08/16/18 15:18 Pulse 87 08/16/18 15:18 Resp 18 08/16/18 15:18 BP 153/99 08/16/18 15:18 Pulse Ox 99 08/16/18 15:18 Complaint Female Dx - Differential Dx/Diagnosis Differential Diagnosis/HQI/PQRI: Cervicitis, Renal Colic, Sexually Transmitted Disease, Ureteral Stone, Urinary Tract Infection Provider Diagnoses: 1- dysuria Discharge - Sign-Out/Discharge Documenting (check all that apply): Patient Departure - D/c home All imaging exams completed and their final reports reviewed: No Studies - Discharge Plan Condition: Stable Disposition: HOME Prescriptions: Phenazopyridine TAB* [Pyridium 100 mg TAB*] 100 mg PO TID #6 tab Patient Education Materials: Dysuria (ED) Referrals: Memo Victoria MD [Primary Care Provider] - 3 Days Additional Instructions: 1- Urinalysis was negative.Please take Pyridium 100 mg PO TID x 2 days to alleviate urinary symptoms. Increase increase fluid intake. drink cranberry juice. finish taking the Bactrim PO as directed 2-Urine sent for culture if any abnormality, you will be notified for further treatment. 3-If symptoms do not improve please return to the urgent care or f/u with your PCP.in 3 days for further management - Billing Disposition and Condition Condition: STABLE Disposition: Home
== END 2018-08-16 16:02 | disposition home or self-care (01) ==
LOC: UCEAST 14:15
DX: R30.0 Dysuria (principal); Z88.1 Allergy status to other antibiotic agents
CPT/HCPCS: 81003; 84702; 87086; 99202; G0463

== ENCOUNTER 2018-11-29 15:41 | Emergency (ER) | payer BC, OTHER ==
[2018-11-29 16:09] VITALS: BP 121/75
--- NOTE | 2018-11-29 16:46 | UC ---
Throat Pain/Nasal Zackary HPI - HPI Summary HPI Summary: Patient presents to urgent care reporting 48 hours of progressive head congestion and sinus pressure. Patient's been blowing yellow-green mucus from her nose. Patient states her nose is sore from blowing. Patient has been taking Mucinex with short-term improvement. Patient is immunocompromised and takes methotrexate and Humira. Patient took both of these medications on Tuesday. Patient states she felt went on Tuesday and thought was related to the medications been otherwise she was developing a cold. Patient without any shortness of breath. No fevers or chills but she states she really notes a fever. Patient H does get sinus infections and this feels similar. Patient states her ears feel slightly full but no esdras pain. Patient denies nausea vomiting. Patient states she is not . Medications reviewed this visit. - History of Current Complaint Chief Complaint: UCGeneralIllness Stated Complaint: HEADACHE Time Seen by Provider: 11/29/18 16:46 Hx Obtained From: Patient Hx Last Menstrual Period: iud Onset/Duration: Gradual Onset Severity: Moderate Pain Intensity: 3 Associated Signs & Symptoms: Positive: Sinus Discomfort, Nasal Discharge - Allergies/Home Medications Allergies/Adverse Reactions: Allergies Allergy/AdvReac Type Severity Reaction Status Date / Time clarithromycin [From Biaxin] Allergy Hives Verified 11/29/18 16:10 PMH/Surg Hx/FS Hx/Imm Hx Previously Healthy: No - UC - Surgical History Surgical History: Yes Surgery Procedure, Year, and Place: surgery for detatched retna; silicone buckle. hernia surg. foot surg. ear tubes. tonsilectomy. pin placement left elbow - Family History Known Family History: Positive: Cardiac Disease, Hypertension, Diabetes Family History: Dyslipidemia - Social History Occupation: Employed Full-time Lives: With Family Alcohol Use: None Substance Use Type: None Smoking Status (MU): Never Smoked Tobacco Have You Smoked in the Last Year: No - Immunization History Most Recent Influenza Vaccination: June 2015 Most Recent Tetanus Shot: unknown Most Recent Pneumonia Vaccination: never Review of Systems All Other Systems Reviewed And Are Negative: Yes Constitutional: Positive: Negative Skin: Positive: Negative Eyes: Positive: Negative ENT: Positive: Nasal Discharge, Sinus Congestion, Sinus Pain/Tenderness Respiratory: Positive: Negative Cardiovascular: Positive: Negative Motor: Positive: Negative Neurovascular: Positive: Negative Musculoskeletal: Positive: Negative Is Patient Immunocompromised?: Yes Physical Exam - Summary Physical Exam Summary: Vital Signs Reviewed: Yes A+Ox3, no distress, congestion Eyes: Conjunctiva Clear, MYRIAM. EOM intact and full ENT: Hearing grossly normal TM x 2 clear, turbinates inflammed and boggy, + PND , + TTP sinuses L>R. mmoist, uvula midline, no exudate, no erythema Neck: Positive: Supple Respiratory: Positive: No respiratory distress, No accessory muscle use + CTA throughout no w/r Cardiovascular: RRR nl s1, s2 no m/r CBT <2 sec abd soft + BS nt/nd no guarding, no distension Musculoskeletal Exam: AGUILERA x 4 without difficulty Strength Intact, ROM Intact Neurological: Positive: Alert, + sensation throughout Psychological: Positive: Normal Response To Family Skin: Positive: no rash, no ecchymosis - face flushed - pt reports baseline Vital Signs: Initial Vital Signs Temp 98.8 F 11/29/18 16:05 Pulse 86 11/29/18 16:05 Resp 16 11/29/18 16:05 BP 121/75 11/29/18 16:05 Pulse Ox 97 11/29/18 16:05 Throat Pain/Nasal Course/Dx - Course Assessment/Plan: Patient presents to urgent care with 48 hours of progressive sinus pressure and green discharge from her nares. Patient with a history of recurrent sinuses and states this feels the same. 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 On exam vital signs are stable. Patient sounds congested. Patient with inflamed turbinates tenderness over her maxillary sinuses left greater than right and postnasal drip. Patient nontoxic appearing. Patient's face is flushed which she states is her baseline. We'll start patient on Augmentin. Patient has Diflucan home. Encourage fluids. Patient's taking Mucinex. Patient does have a CPAP machine encouraged her to wash laterally. Patient comfortable in agreement with plan. Return precautions discussed. - Differential Dx/Diagnosis Provider Diagnosis: Rhinosinusitis Discharge - Sign-Out/Discharge Documenting (check all that apply): Patient Departure All imaging exams completed and their final reports reviewed: No Studies - Discharge Plan Condition: Stable Disposition: HOME Prescriptions: Amoxicillin/Clavulanate TAB* [Augmentin TAB 875*] 875 mg PO BID #20 tab Patient Education Materials: Rhinosinusitis (ED) Referrals: Memo Victoria MD [Primary Care Provider] - Additional Instructions: - Stay well hydrated. Drink plenty of non-alcoholic, non-caffinated beverages. - Okay to take Tylenol every 6 hours for pain or fever. Take with food. Do NOT take for more than 4-5 days. - These infections are spread by secretions - do NOT share eating or drinking utensils - clean items you share with other people such as cell phones, computer mouse, TV remote, computer tablets,etc. Once you have been antibiotics for 2 days, change your toothbrush and your pillowcase. - get plenty of restful sleep - humidify the air in your CPAP machine and in the room where you sleep - boil water, run a hot steam shower, vaporizer, cups of water by heat register - okay to take over the counter decongestant and cough medication - This antibiotic may cause diarrhea - eating yogurt or taking pro-biotics may help decrease diarrhea - contact your doctor or return with questions or concerns - Billing Disposition and Condition Condition: STABLE Disposition: Home
== END 2018-11-29 17:19 | disposition home or self-care (01) ==
LOC: UCEAST 15:41
DX: J32.9 Chronic sinusitis, unspecified (principal); Z88.1 Allergy status to other antibiotic agents
CPT/HCPCS: 99212; G0463